=== PATIENT | female | born 1940 | race Caucasian/White ===

== ENCOUNTER 2017-05-08 20:12 | Inpatient (IN) | payer OTHER, MEDICARE ==
[2017-05-08] MEDS ORDERED: ONDANSETRON 4 MG/2 ML VIAL ONE (20:46)
[2017-05-08] MEDS ORDERED: ONDANSETRON 4 MG/2 ML VIAL IVP ONE ×2 (20:47→22:15)
[2017-05-08 20:48] LABS: PLATELET COUNT 256 10^3/uL (150-400)
[2017-05-08 21:05] LABS: CREATINE KINASE 57 IU/L (0-156)
--- NOTE | 2017-05-08 21:16 | EDPHY ---
H & P Smoking Status: Former smoker Time Seen by Provider: 05/08/17 20:33 HPI/ROS: CHIEF COMPLAINT: Right leg pain after fall HISTORY OF PRESENT ILLNESS: The patient is a 76 y/o female arriving with pain in the right knee, right hip, right lower back, and right ribs after a fall. She was sorting papers at 1:15 PM when she slipped on a paper on the ground. She fell on her right side and was unable to get up. She waited for almost 5 hours for a family member to come home. She reports pain in her right knee and right lower back are the most severe with pain in her right hip and right ribs as well. She reports she fractured her right femur just above the knee in 2012. She had an unknown injury to her right lower back in 1970. REVIEW OF SYSTEMS: A 10 point review of systems was performed and is negative with the exception of the elements mentioned in the history of present illness. (Betty Sloares) Past Medical/Surgical History: 1. Fracture to the right distal femur in 2012 2. Right lower back injury in 1970 (Betty Solares) Social History: Lives in [place], retired, former smoker (Betty Solares) Physical Exam: General Appearance: Alert, pleasant Eyes: Pupils equal and round, no conjunctival pallor or injection ENT, Mouth: Mucous membranes moist Neck: Normal inspection Respiratory: Lungs are clear to auscultation Cardiovascular: Regular rate and rhythm Gastrointestinal: Abdomen is soft and non-tender Neurological: A&O, nonfocal exam Skin: Warm and dry, no rash Extremities: Tenderness and swelling to right distal femur Psychiatric: Mood and affect normal (Betty Solares) Constitutional: Initial Vital Signs Heart Rate 94 05/08/17 21:30 Respiratory Rate 16 05/08/17 21:30 Blood Pressure 119/92 H 05/08/17 21:30 O2 Sat (%) 98 05/08/17 21:30 O2 Delivery Mode Nasal Cannula O2 (L/minute) 2 Allergies/Adverse Reactions: enalapril maleate [From Vasotec] Allergy (Intermediate, Verified 03/29/12 11:19) enalaprilat dihydrate [From Vasotec] Allergy (Verified 03/29/12 11:19) Sulfa (Sulfonamide Antibiotics) Allergy (Verified 03/29/12 11:19) Home Medications: Medication Instructions Recorded Aspirin [Aspirin 81mg (*)] 81 mg PO Q3D@21 03/29/12 Furosemide [Lasix 20 MG (*)] 20 mg PO Q3D 03/29/12 Levothyroxine [Synthroid 75 mcg 75 mcg PO MOTUWETHFRSA@06 03/29/12 (*)] Simvastatin [Zocor 40 mg] 40 mg PO HS 03/29/12 Spironolactone [Aldactone 25 MG 25 mg PO Q3D 03/29/12 (*)] Vitamin B Complex [Vitamin B 1 each PO Q3D 03/29/12 Complex (OTC)] metFORMIN HCL [Glucophage 500 mg 500 mg PO BIDMEAL 03/29/12 (*)] Calcium Carbonate [Tums 500MG (*)] 500 - 1,000 mg PO Q4 PRN 01/14/16 Insulin Glargine [Lantus 100 0 units SC DAILY 01/14/16 UNITS/ML (*)] [place]-3 Fatty Acids [Fish Oil 1000 1,000 mg PO Q3D 01/14/16 mg (*)] Acetaminophen [Tylenol 325mg (*)] 325 mg PO DAILY PRN 05/09/17 Ferrous Sulfate [Ferrous Sulf 325 325 mg PO Q3D 05/09/17 MG (*)] Medical Decision Making Procedures: An OrthoGlass posterior long leg splint was placed by the rad technologist. Neurovascularly intact after application. (Betty Solares) ED Course/Re-evaluation: 12:15 a.m.- I was asked to follow up on the patient's additional imaging studies. CT scan of lumbar spine does confirm T12 compression fracture, which appears to be likely acute. The patient does not have any tenderness of her thoracic spine. Because we have identified a femur fracture as well as a lumbar spinal fracture , I have consulted with the trauma surgeon labor relations manager Dr. Arauz who will see the patient in consultation. I do not think emergent neurosurgical consultation is required at this time given that she is without tenderness or neurologic deficit. (Aicha Patterson) The patient presents after a fall at her home. She landed on her right side and reports pain in her right knee and right lower back. She has associated pain in her right ribs and right hip, though reports it is not as severe as the knee and lower back. She denies any other symptoms. On exam, she has tenderness and swelling to her right distal femur. X-rays indicate a fracture to the right distal femur. Plan for admission for this patient. 9:55 PM- I consulted Dr. Schaffer, orthopedic surgery. He agrees to consult on this patient. 10:15 PM- I spoke with the hospitalist regarding admission for this patient. Dr. Zuñiga will be the admitting physician. 10:35 PM- Dr. Schaffer arrived and is examining the patient. A splint will be placed after his evaluation. Once splint is place, the patient will be turned to evaluate her back. There is an injury of unknown acuity T12 as shown on X-ray. Logrolled: normal back inspection, no tenderness of the thoracic or lumbar spine. However, given significant distracting injury (femur fracture), will obtain CT thoracic lumbar spine to further evaluate. X-rays discussed with the radiologist. Possible nondisplaced intertrochanteric right hip fracture. CT scan of the right hip ordered and reveals no evidence of fracture. (Betty Solares) Differential Diagnosis: Differential diagnosis includes though it is not limited to fracture, intracranial hemorrhage, pneumothorax, hemothorax, intra-abdominal hemorrhage. ( Betty Solares) - Data Points Laboratory Results: Laboratory Results 05/08/17 20:12 05/08/17 20:12 Medications Given: Hydromorphone HCl (Dilaudid) 2 mg PO Q4HRS PRN PRN Reason: Pain, Severe Able to Take PO Stop: 05/18/17 22:22 Last Admin: 05/09/17 09:54 Dose: 2 mg Lactated Ringer's (Lr) 1,000 mls @ 75 mls/hr IV CONT GENE Stop: 11/05/17 06:29 Last Admin: 05/09/17 06:21 Dose: 1,000 mls Insulin Human Lispro (Humalog Lispro) 0 unit SC TIDMEAL GENE PRN Reason: Protocol Stop: 11/05/17 07:59 Last Admin: 05/09/17 19:18 Dose: Not Given Ondansetron HCl (Zofran Odt) 4 mg PO Q4HRS PRN PRN Reason: Nausea/Vomiting, Use 1st Stop: 11/04/17 22:22 Last Admin: 05/08/17 23:29 Dose: 4 mg Discontinued Medications Bupivacaine HCl (Sensorcaine 0.5% Vial) Confirm Administered Dose 30 ml .ROUTE .STK-MED ONE Stop: 05/09/17 13:02 Last Admin: 05/09/17 17:13 Dose: 30 ml Cyclobenzaprine HCl (Flexeril) 10 mg PO TID GENE Stop: 11/05/17 08:59 Last Admin: 05/09/17 17:34 Dose: Not Given Cefazolin Sodium (Cefazolin Syringe) 2 gm in 20 mls @ 200 mls/hr IVP ONCALL ONE PRN Reason: Protocol Stop: 05/09/17 07:30 Last Admin: 05/09/17 16:00 Dose: 20 mls Morphine Sulfate (Morphine) 4 mg IVP EDNOW ONE Stop: 05/08/17 20:49 Last Admin: 05/08/17 20:50 Dose: 4 mg Morphine Sulfate (Morphine) 4 mg IVP EDNOW ONE Stop: 05/08/17 21:56 Last Admin: 05/08/17 22:02 Dose: 4 mg Ondansetron HCl (Zofran) 4 mg IVP EDNOW ONE Stop: 05/08/17 20:48 Last Admin: 05/08/17 20:50 Dose: 4 mg Ondansetron HCl (Zofran) 4 mg IVP EDNOW ONE Stop: 05/08/17 22:16 Last Admin: 05/08/17 22:22 Dose: 4 mg Departure - Departure Disposition: [facility] Inpatient Acute Clinical Impression: T12 compression fracture Fracture of distal femur Qualifiers: Encounter type: initial encounter Fracture type: closed Fracture morphology: other fracture Laterality: right Qualified Code(s): S72.491A - Other fracture of lower end of right femur, initial encounter for closed fracture Condition: Fair Report Scribed for: Betty Solares Report Scribed by: Sangita Sky Date of Report: 05/08/17 Time of Report: 21:16 Physician Review and Approval Statement: 05/08/17 21:16 Portions of this note were transcribed by a medical science liaison. I personally performed a history, physical exam, medical decision making, and confirmed accuracy of information the transcribed note. (Betty Solares)
[2017-05-08] MEDS ORDERED: NS 50 ML BAG IV ONE (22:01)
[2017-05-08] MEDS ORDERED: ONDANSETRON 4 MG/2 ML VIAL IVP PRN (22:23)
[2017-05-08] MEDS: ONDANSETRON DISINTEGRATING 4 MG TAB PO PRN (23:29)
[2017-05-08] MEDS: HYDROmorphONE/DILAUDID 2 MG TAB PO PRN (23:29)
[2017-05-09] MEDS ORDERED: D50W 25 GM/50 ML VIAL IVP PRN (01:00)
--- NOTE | 2017-05-09 01:05 | GCON ---
[f rep st] CONSULTATION DATE OF CONSULTATION: 05/08/2017 REFERRING PHYSICIAN: Betty Solares MD REASON FOR CONSULTATION: Right leg pain after fall. HISTORY OF PRESENT ILLNESS: This patient is a -[id number] female with several medical comorb idities, who presented to the ER with pain in the right knee, hip, lower back, and ribs after a fall. She was sorting papers at her house this afternoon, when she slipped on a paper on the ground, fell onto her right side, unable to get up. She waited at home for about 5 hours before somebody came ho me to help. She presented to the ER and X-rays were taken of the ankle, knee, hip, and lower back. She reports a fracture to her right femur above her knee in 2012 that was treated without surgery, an d she also reports a remote lower back injury. She is unsure of the details of that injury. REVIEW OF SYSTEMS: A 10-point review of systems is negative except for as reported above. PAST MEDICAL HISTORY: She has coronary artery disease status post 2 stents. She has COPD and is on oxygen at night. She has diabetes mellitus type 2 and is on insulin. SOCIAL HISTORY: She is retired, lives with a housemate. She is a former smoker. PAST SURGICAL HISTORY: She had a prior hysterectomy. PHYSICAL EXAMINATION: GENERAL: Alert and oriented x3, lying in bed, in mild pain. CARDIOVASCULAR: She has a thready 1+ DP pulse. PULMONARY: Chest rise equal and nonlabored bilaterally on oxygen by nasal cannula. MUSCULOSKELETAL: Right lower extremity resting on pillows. She has intact EHL, FHL , tibialis anterior, and gastroc soleus. She is intact to light touch in all dermatomes of the foot. Does report that the lateral 2 toes "feel funny." She has mentioned above, has a thready 1+ DP pul se. Her foot is well perfused. There is visible deformity over the knee. The skin is intact. PARESH L SIGNS: Within normal limits. LABS: Her hemoglobin is 12.6. Her blood sugar is elevated at 280. IMAGING: I reviewed images of the knee. They show a supracondylar femur fracture. It appears to be extra-articular with a transverse component. I reviewed the other x-rays. There is an x-ray that w as taken of the ankle, which appears to be negative. There is an x-ray of the hip, which appears to also be negative for fracture. There is an x-ray of the lumbar spine, which shows a compression frac ture at T12. ASSESSMENT AND PLAN: The patient will be admitted to the hospital service due to the multiple medica l comorbidities. We will plan on surgery tomorrow if she is okay to undergo surgery, per the risk st ratification of the hospitalist team. As far as the thoracic spine injury, she will be evaluated by the ER team. If this is deemed to be an acute injury, consultation with the spine surgeon on-call wa s recommended prior to undergoing a surgery. I will speak to the hospitalist team tomorrow to ingrid estradae her care. /[id number]/MODL
--- NOTE | 2017-05-09 01:10 | PDGENHP ---
History and Physical - Chief Complaint Fall - History of Present Illness 76 yo F w/ hx of DM and CAD presents after a fall. Patient states she slipped in her house and fell, injuring her R leg. After she fell she was unable to get up. She fell around 1 PM and was not found until 6:30 PM by her housemate. Upon arrival in the ED she was noted to have a R femoral fracture. She is being admitted for pain control and surgical consultation. History Information - Allergies/Home Medication List Allergies/Adverse Reactions: enalapril maleate [From Vasotec] Allergy (Intermediate, Verified 03/29/12 11:19) enalaprilat dihydrate [From Vasotec] Allergy (Verified 03/29/12 11:19) Sulfa (Sulfonamide Antibiotics) Allergy (Verified 03/29/12 11:19) Home Medications: Ascorbic Acid [Vitamin C 500 mg (*)] 500 mg PO BID 03/29/12 [Last Taken 08:00] Aspirin [Aspirin 81mg (*)] 81 mg PO HS 03/29/12 [Last Taken 03/28/12 21:00] Furosemide [Lasix 20 MG (*)] 20 mg PO Q3D 03/29/12 [Last Taken 03/27/12] Levothyroxine [Synthroid 75 mcg (*)] 75 mcg PO SUMOTUWETHFR@0600 03/29/12 [Last Taken 03/29/12] Simvastatin [Zocor 40 mg] 40 mg PO HS 03/29/12 [Last Taken 01/13/16] Spironolactone [Aldactone 25 MG (*)] 25 mg PO Q3D 03/29/12 [Last Taken 03/28/12] Vitamin B Complex [Vitamin B Complex (OTC)] 1 each PO DAILY 03/29/12 [Last Taken 03/29/12 08:00] metFORMIN HCL [Glucophage 500 mg (*)] 500 mg PO BIDMEAL 03/29/12 [Last Taken 08:00] Calcium Carbonate [Tums 500MG (*)] 500 - 1,000 mg PO Q4 PRN 01/14/16 [Last Taken Unknown] [place]/Supplements -Info Only 1 ea PO DAILY 01/14/16 [Last Taken Unknown] Insulin Glargine [Lantus 100 UNITS/ML (*)] 0 units SC DAILY 01/14/16 [Last Taken Unknown] [place]-3 Fatty Acids [Fish Oil 1000 mg (*)] 1,000 mg PO DAILY 01/14/16 [Last Taken Unknown] oxyCODONE/APAP 5/325 [Percocet 5/325 (*)] 0.25 - 0.5 tab PO DAILY PRN 01/14/16 [ Last Taken Unknown] I have personally reviewed and updated: family history, medical history - Past Medical History coronary artery disease, diabetes type 2 - Surgical History Reports: hysterectomy - Family History Positive for: diabetes type II - Social History Smoking Status: Former smoker Review of Systems Review of Systems: ROS: 10pt was reviewed & negative except for what was stated in HPI & below Physical Exam Physical Exam: Temp Pulse Resp BP Pulse Ox 88 16 132/67 H 100 05/08/17 23:30 05/08/17 23:30 05/08/17 23:30 05/08/17 23:30 Constitutional: chronically ill appearing, uncomfortable Eyes: PERRL, EOMI Ears, Nose, Mouth, Throat: moist mucous membranes, no oral mucosal ulcers Cardiovascular: regular rate and rhythym, systolic murmur Respiratory: no respiratory distress, clear to auscultation Gastrointestinal: normoactive bowel sounds, soft, non-tender abdomen Skin: warm, normal color Musculoskeletal: other (R leg wrapped w/ splint in place) Neurologic: AAOx3, CN II-XII Intact Psychiatric: interacting appropriately, not anxious Lab Data & Imaging Review 05/08/17 20:12 05/08/17 20:12 WBC 15.90 10^3/uL (3.80-9.50) H 05/08/17 20:12 RBC 4.16 10^6/uL (4.18-5.33) L 05/08/17 20:12 Hgb 12.5 g/dL (12.6-16.3) L 05/08/17 20:12 Hct 37.2 % (38.0-47.0) L 05/08/17 20:12 MCV 89.4 fL (81.5-99.8) 05/08/17 20:12 MCH 30.0 pg (27.9-34.1) 05/08/17 20:12 MCHC 33.6 g/dL (32.4-36.7) 05/08/17 20:12 RDW 12.8 % (11.5-15.2) 05/08/17 20:12 Plt Count 256 10^3/uL (150-400) 05/08/17 20:12 MPV 11.8 fL (8.7-11.7) H 05/08/17 20:12 Neut % (Auto) 86.5 % (39.3-74.2) H 05/08/17 20:12 Lymph % (Auto) 6.9 % (15.0-45.0) L 05/08/17 20:12 [place] % (Auto) 5.5 % (4.5-13.0) 05/08/17 20:12 Eos % (Auto) 0.1 % (0.6-7.6) L 05/08/17 20:12 Baso % (Auto) 0.4 % (0.3-1.7) 05/08/17 20:12 Nucleat RBC Rel Count 0.0 % (0.0-0.2) 05/08/17 20:12 Absolute Neuts (auto) 13.76 10^3/uL (1.70-6.50) H 05/08/17 20:12 Absolute Lymphs (auto) 1.09 10^3/uL (1.00-3.00) 05/08/17 20:12 Absolute Monos (auto) 0.87 10^3/uL (0.30-0.80) H 05/08/17 20:12 Absolute Eos (auto) 0.01 10^3/uL (0.03-0.40) L 05/08/17 20:12 Absolute Basos (auto) 0.07 10^3/uL (0.02-0.10) 05/08/17 20:12 Absolute Nucleated RBC 0.00 10^3/uL (0-0.01) 05/08/17 20:12 Immature Gran % 0.6 % (0.0-1.1) 05/08/17 20:12 Immature Gran # 0.10 10^3/uL (0.00-0.10) 05/08/17 20:12 Sodium 140 mEq/L (135-145) 05/08/17 20:12 Potassium 4.8 mEq/L (3.5-5.2) 05/08/17 20:12 Chloride 104 mEq/L (97-110) 05/08/17 20:12 Carbon Dioxide 19 mEq/l (22-31) L 05/08/17 20:12 Anion Gap 17 mEq/L (8-16) H 05/08/17 20:12 BUN 25 mg/dL (7-23) H 05/08/17 20:12 Creatinine 1.1 mg/dL (0.6-1.0) H 05/08/17 20:12 Estimated GFR 48 05/08/17 20:12 Glucose 289 mg/dL (70-100) H 05/08/17 20:12 Calcium 9.2 mg/dL (8.5-10.4) 05/08/17 20:12 Creatine Kinase 57 IU/L (0-156) 05/08/17 20:12 Imaging Review: Imaging Impressions Ankle X-Ray 05/08/17 20:40 Impression: 1. No definite fracture. 2. Tibiotalar and fibulotalar osteoarthrosis. 3. Diffuse demineralization. Hip X-Ray 05/08/17 20:40 Impression: Subtle intertrochanteric lucency through the right femur could represent subtle nondisplaced fracture. Dr. Lanza discussed these findings by telephone with JOSE YU at 2310 hours on 05/08/2017. Knee X-Ray 05/08/17 20:40 Impression: 1. Comminuted and displaced fracture of the distal femoral metaphysis, as above. 2. Suspected nondisplaced fracture of the proximal fibula. 3. Cortical thinning/irregularity in the fibula, progressed since 2014. While this may reflect underlying osteopenia/osteoporosis, multiple myeloma could have a similar appearance. Lumbar Spine X-Ray 05/08/17 20:40 Impression: 1. Mild anterior wedge deformity of T12 consistent with an age-indeterminate compression fracture. 2. Multilevel degenerative changes with grade 1 anterolisthesis at L4-L5. Lumbar Spine CT 05/08/17 22:53 Impression: 1. Mild anterior wedge deformity/compression fracture at T12, likely acute. 2. Multilevel degenerative changes with at least moderate canal stenosis at L4- L5, as above. Dr. Lanza discussed these findings by telephone with Aicha Patterson at 2354 hours on 05/08/2017. Extremity CT 05/08/17 23:09 Impression: 1. Severely comminuted intra-articular fracture of the distal femoral meta- epiphysis, as above. 2. Intact right hip. Dr. Lanza discussed these findings by telephone with Aicha Patterson at 2354 hours on 05/08/2017. Assessment & Plan Assessment: 76 yo F w/ DM and CAD presents after a fall and found to have femoral fracture and spinal compression fracture. Plan: 1. Femoral fracture - Severely comminuted intra-articular fracture of the distal femoral meta-epiphysis. - Dilaudid IV, PO for pain control - Orthopedic surgery consulted, appreciate assistance - Maintain NPO - Will check Vit D, would recommend DEXA evaluation for osteoporosis as outpatient 2. Mild anterior wedge deformity/compression fracture at T12, likely acute. - Trauma evaluation requested, appreciate assistance - PT/OT evaluations 3. IDDM - Patient takes metformin and insulin glargine 32 u qAM as outpatient. - SSI standard protocol - Await med reconciliation prior to ordering basal insulin 4. CAD - Patient reports hx of 2 cardiac stents in 2005. She takes ASA and statin as outpatient. Diet - NPO pending surgical evaluation Code - Full Ppx - SCDs Dispo - Admit under inpatient status noting need for surgical intervention and likely lengthy therapy prior to regaining mobility.
[2017-05-09 04:26] LABS: PLATELET COUNT 228 10^3/uL (150-400)
--- NOTE | 2017-05-09 05:15 | PDCONSULT ---
Document Preparer Microfilming Note: CC: R leg pain HPI: 76 y/o female found down at 6:30PM last night after slipping and falling at home landing on her right side and injuring her right leg. She was transported to the ED and was evaluated by Dr. Solares who consulted Dr. Schaffer for a distal right femur fracture. Additional imaging revealed a T12 compresion fracture. She was admitted to the Medical Service and Trauma Surgical Consult was requested. She denies LOC or head injury. She reports previously fracturing her distal right femur in 2012 and was managed non-operatively. PMH: IDDM, HTN, chronic bronchitis (home O2 2lpm), CAD/stent x 2 tobacco-quit smoking 1985 surgery-hysterectomy SH: lives in [place] with a roomate FH: non-contributing ROS: right hip pain, knee pain, dry mouth denies SOB, chest pain denies LOC, ARAUZ, visual disturbances reports prior back injury 1970-no x-rays PE: elderly obese female alert and awake/good historian BP 128/78 P 74 T 36.4 R18 O2 sat 94% 2lpm HEENT: NCAT, P2RRL,EOM intact, neck non-tender Lungs: clear with diminished CVS: RRR w/out murmurs Abd: soft/non-tender Pelvis: tender right posterior pelvis/SI joint Back: no tenderness Thoraco-Lumbar spine Ext: RLE TALIA wrap in partial flexion, distal NV intact neuro: intact, oriented x 3, GCS 15 Imp: 1. s/p fall 2. right distal femur fx. 3. T12 fracture-age indeterminate, but without focal tenderness currently 4. HTN 5. IDDM 6. chronic bronchitis/O2 7. obesity Rec: PT/OT/ST definitive management of right distal femur fracture per Dr. Schaffer I would not recommend further work up of the T12 fx unless she becomes symptomatic VTE prophylaxis CXR Continue NPO for now unless surgery for ORIF is delayed IV fluids until taking po. S MD Regla, FACS
[2017-05-09] MEDS: HYDROmorphONE/DILAUDID 2 MG TAB PO PRN ×2 (05:45→09:54)
[2017-05-09] MEDS: LR 1,000 ML IV SCH (06:21)
[2017-05-09] MEDS ORDERED: ceFAZolin 2 GM/SWFI 2 GM/20 ML SYR IVP ONE (07:25)
--- NOTE | 2017-05-09 08:44 | HOSPPROG ---
Hospitalist Progress Note Assessment/Plan: 76 yo F w/ DM and CAD presents after a fall and found to have femoral fracture and spinal compression fracture. Today is my 1st encounter with the patient. Chart reviewed. * femoral fracture - Severely comminuted intra-articular fracture of the distal femoral meta-epiphysis. - Dilaudid IV, PO for pain control - OR today with Dr Schaffer *low Vitamin D level -will add calcium and D to her medication profile *T12 compression fx, mild anterior wedge -not c/o back pain -will follow *leukocytosis -stress induced *anemia -follow/ repeat labs in the morning *renal insufficiency -creat is 1.1, repeat labs in a.m. * IDDM - Patient takes metformin and insulin glargine 32 u qAM as outpatient. - SSI standard protocol - hold metformin and continue sliding scale only, can add long acting insulin when she is eating and drinking * CAD - Patient reports hx of 2 cardiac stents in 2005 -had a heart catheterization in 2014 that was unremarkable w minimal CAD *dvt prophylaxis: will need this initiated after surgery *plan: OR today, her cardiac risk index is moderate. 6.6% of PR. She has diabetes, CAD. Will get repeat labs in the morning Subjective: Alex has no c/o chest pain, her leg hurts. Objective: Vital Signs Temp Pulse Resp BP Pulse Ox 36.8 C 94 16 109/51 L 99 05/09/17 07:44 05/09/17 07:44 05/09/17 07:44 05/09/17 07:44 05/09/17 07:44 Laboratory Results 05/09/17 04:15 05/09/17 04:15 05/08/17 05/09/17 05/10/17 05:59 05:59 05:59 Output Total 200 Balance -200 - Physical Exam Constitutional: uncomfortable, No not in pain Eyes: PERRL Ears, Nose, Mouth, Throat: hearing normal Cardiovascular: regular rate and rhythym, no murmur, rub, or gallop Respiratory: no respiratory distress Skin: warm Musculoskeletal: muscular tenderness Neurologic: AAOx3 Psychiatric: interacting appropriately ICD10 Worksheet Patient Problems: Problems Problem Status Onset Fracture of distal femur Acute T12 compression fracture Acute Fracture of proximal end of femur Active UTI (urinary tract infection) Acute Vertigo Acute Vomiting Acute
[2017-05-09] MEDS: CYCLOBENZAPRINE 10 MG TAB PO SCH ×2 (09:53→17:34)
--- NOTE | 2017-05-09 10:42 | CPEKG ---
Heart Rate: 86 RR Interval: 698 P-R Interval: 180 QRSD Interval: 66 QT Interval: 363 QTC Interval: 434 P [place]: 62 QRS [place]: 35 T Wave [place]: 15 EKG Severity - BORDERLINE ECG - EKG Impression: SINUS RHYTHM EKG Impression: BORDERLINE T ABNORMALITIES, ANTERIOR LEADS Electronically Signed By: Manuel Quinonez 09-May-2017 12:57:05
[2017-05-09] MEDS: INSULIN LISPRO 100 UNIT/ML SC SCH ×3 (10:45→19:18)
--- NOTE | 2017-05-09 11:18 | ASMTCMCOM ---
CM Note CM Note Notes: Pt to OR today for femur fx she sustained after a fall at home. Pt lives w a housemate. Potentially complicating comorbidities: CAD and type 2 diabetes. Therapy evals pending. CM to follow pt progress and PT/OT recs for d/c plan of care. Date Signed: 05/09/2017 11:17 AM Electronically Signed By:TRACY Mendez
--- NOTE | 2017-05-09 11:58 | PDMN ---
Medical Necessity Medical necessity: Change to IP, as of 05/09/17, per MD; los >2 mn for ongoing management of R femur fx & T12 compression fx r/t fall; admit for Ortho/Trauma consults, surgical intervention, IVFs, IV abx, pain management & therapies; hx CAD, diabetes; per H&P & order 05/09/17
[2017-05-09] MEDS ORDERED: BUPIVACAINE 0.5% 30 ML SDV ONE (13:01)
--- NOTE | 2017-05-09 13:45 | PDHPUP ---
History & Physical Update H&P update statement: This history and physical update is based on an assessment of the patient which was completed after admission or registration (within 24 hours), but prior to the surgery/procedure. H&P update: H&P reviewed & patient examined, no change in patient's condition since H&P completed
--- NOTE | 2017-05-09 13:48 | PDANEPAE ---
ANE Past Medical History - Cardiovascular History Hx Coronary Artery / Peripheral Vascular Disease: Yes - Pulmonary History Hx Oxygen in Use at Home: Yes O2 in Use at Home (L/minute): 2 Hx Sleep Apnea: Yes Sleep Apnea Screening Result - Last Documented: Positive - Endocrine History Hx Diabetes: Yes Hypothyroid: Yes - Chronic Pain History Chronic Pain: Yes (r hip, r lower bacl, r knee, r ankle) ANE Review of Systems Review of Systems: ANE Patient History - Allergies Allergies/Adverse Reactions: enalapril maleate [From Vasotec] Allergy (Intermediate, Verified 03/29/12 11:19) enalaprilat dihydrate [From Vasotec] Allergy (Verified 03/29/12 11:19) Sulfa (Sulfonamide Antibiotics) Allergy (Verified 03/29/12 11:19) - Home Medications Home Medications: Aspirin [Aspirin 81mg (*)] 81 mg PO Q3D@21 03/29/12 [Last Taken 05/07/17] Furosemide [Lasix 20 MG (*)] 20 mg PO Q3D 03/29/12 [Last Taken 03/27/12] Levothyroxine [Synthroid 75 mcg (*)] 75 mcg PO MOTUWETHFRSA@06 03/29/12 [Last Taken 05/08/17] Simvastatin [Zocor 40 mg] 40 mg PO HS 03/29/12 [Last Taken 05/07/17] Spironolactone [Aldactone 25 MG (*)] 25 mg PO Q3D 03/29/12 [Last Taken 03/28/12] Vitamin B Complex [Vitamin B Complex (OTC)] 1 each PO Q3D 03/29/12 [Last Taken 03/29/12 08:00] metFORMIN HCL [Glucophage 500 mg (*)] 500 mg PO BIDMEAL 03/29/12 [Last Taken 09:00] Calcium Carbonate [Tums 500MG (*)] 500 - 1,000 mg PO Q4 PRN 01/14/16 [Last Taken Unknown] Insulin Glargine [Lantus 100 UNITS/ML (*)] 0 units SC DAILY 01/14/16 [Last Taken 05/08/17 32 units] [place]-3 Fatty Acids [Fish Oil 1000 mg (*)] 1,000 mg PO Q3D 01/14/16 [Last Taken Unknown] Acetaminophen [Tylenol 325mg (*)] 325 mg PO DAILY PRN 05/09/17 [Last Taken Unknown] Ferrous Sulfate [Ferrous Sulf 325 MG (*)] 325 mg PO Q3D 05/09/17 [Last Taken Unknown] - NPO status NPO Since - Liquids (Date): 05/09/17 NPO Since - Liquids (Time): 00:00 NPO Since - Solids (Date): 05/09/17 NPO Since - Solids (Time): 00:00 - Smoking Hx Smoking Status: Former smoker ANE Labs/Vital Signs - Labs Result Diagrams: 05/09/17 04:15 05/09/17 04:15 - Vital Signs Blood Pressure: 93/70 Heart Rate: 93 Respiratory Rate: 15 O2 Sat (%): 95 Height: 152.4 cm Weight: 68.039 kg ANE Physical Exam - Airway Mallampati Score: Class 2 - ASA Status ASA Status: III ANE Anesthesia Plan Anesthesia Plan: general endotracheal anesthesia
[2017-05-09] MEDS ORDERED: fentaNYL 100 MCG/2 ML INJ ONE ×2 (13:56→15:52)
[2017-05-09] MEDS ORDERED: PROPOFOL 200 MG/20 ML VIAL ONE (13:56)
[2017-05-09] MEDS ORDERED: PHENYLEPHRINE HCL 100 MCG/ML SYR ONE (13:57)
[2017-05-09] MEDS ORDERED: ONDANSETRON 4 MG/2 ML VIAL ONE (13:57)
[2017-05-09] MEDS ORDERED: METOCLOPRAMIDE 10 MG/2 ML VIAL ONE (13:57)
[2017-05-09] MEDS ORDERED: LIDOCAINE 2% JELLY 5 ML TUBE ONE (13:57)
[2017-05-09] MEDS ORDERED: ceFAZolin 2 GM/SWFI 20 ML SYR IVP ONE (13:59)
[2017-05-09] MEDS ORDERED: BISACODYL 10 MG SUPP PR PRN (14:41)
[2017-05-09] MEDS ORDERED: LACTULOSE 20 GM/30 ML UDCUP PO PRN (14:41)
[2017-05-09] MEDS ORDERED: fentaNYL 100 MCG/2 ML INJ IVP PRN (17:14)
[2017-05-09] MEDS ORDERED: LR 500 ML IV PRN (17:14)
[2017-05-09] MEDS ORDERED: PROMETHAZINE HCL 25 MG/ML INJ IVP PRN (17:14)
[2017-05-09] MEDS ORDERED: NALOXONE HCL 0.4 MG/ML INJ IVP PRN (17:14)
--- NOTE | 2017-05-09 17:15 | POSTANESTH ---
Post Anesthetic Evaluation Cardiovascular Status: Similar to Pre-Op Cond Respiratory Status: Similar to Pre-op Cond. Level of Consciousness/Mental Status: Can Participate in Eval Pain Control: Adequate, Prn Tx Ordered Nausea/Vomiting Control: Adequate, Prn Tx Ordered Complications Possibly Related to Anesthesia: None Noted
--- NOTE | 2017-05-09 20:23 | GOP ---
[f rep st] OPERATIVE REPORT DATE OF OPERATION: SURGEON: Lenny Schaffer MD ANESTHESIA: General. PREOPERATIVE DIAGNOSIS: Intra-articular right distal femur fracture. POSTOPERATIVE DIAGNOSIS: Intra-articular right distal femur fracture. PROCEDURE PERFORMED: Open reduction and internal fixation of right intra-articular distal femur frac domonique. FINDINGS: ESTIMATED BLOOD LOSS: 40 cc. INDICATIONS: This is a 76-year-old female who sustained this injury yesterday when she slipped and f ell at home. She was seen and evaluated in the ER by the ER staff. I was consulted. I saw the km ent in the ER yesterday. She was admitted to the hospitalist service. Open reduction and internal f ixation are indicated for this pattern of injury. I reviewed the x-ray and the CT, which showed a di stal femur fracture with an intra-articular split. Discussed the risks and benefits of surgery. Ris ks include pain, bleeding, infection, damage to surrounding structures, malunion, nonunion, delayed u nion, stiffness and weakness, limp, need for further operations, hardware irritation. She understood the risks and wished to proceed. DESCRIPTION OF PROCEDURE: The patient was seen in the preoperative holding area. She was given the opportunity to ask any more questions. All her questions were answered. Consent was signed. Surgic al site was marked. She was transferred to the operative suite. Care was taken to transfer the km ent from the [facility] to the operating room table. Care was taken to pad all bony prominences prior to the induction of anesthesia. General anesthesia was induced by the anesthesia team. Time-out was c alled including surgical and anesthesia teams confirming the surgical site and procedure to be perfor med. The right extremity was prepped and draped in the usual sterile fashion on a radiolu cent table, and Esmarch was used to examine the right lower extremity, and the tourniquet was inflate d to 300 mmHg. I made a standard lateral incision for a direct lateral approach to the distal femur. We dissected down through the skin to the level of the IT band. The IT band was split up to Gerdy tubercle. Then a lateral arthrotomy was performed. The joint was visualized. The fracture was visu alized after elevating the vastus lateralis from the intermuscular septum. After visualizing the fra cture, it was irrigated. First, 2 wires were used to hold the intra-articular split reduced and a pl ate was then chosen. Then, a reduction was performed with traction and flexion of the femur. The re duction was then held with several K-wires. The plate was then placed against the bone and distally was held against the bone with a periarticular clamp. A small stab incision was made medially for th e clamp. With the plate clamped to the skin, several K-wires were then used to hold it onto the bone and the position was checked with fluoroscopy. When we were happy with its position, the distal loc kimmie screws were placed in the standard fashion unicortically. I checked these under fluoroscopy and we were happy with these. Then, a cortical screw was placed laterally to pull the plate against the bone. This pulled the plate in nicely. The reduction remained anatomic. Two more locking screws w ere placed and then placed through the plate. Final x-rays were taken. The wound was copiously irri gated with sterile saline. The IT band and the arthrotomy were closed with a #1 Vicryl. Then, the w ound was closed in layers with 0 Vicryl, 2-0 Monocryl and then carter. Sterile dressing was applied . Of note, prior to fully closing, the tourniquet was let down. There was no bleeding and the foot was well perfused. After placing a hinged knee brace, the patient was taken to the PACU in stable co ndition. IMPLANTS USED: Synthes periarticular distal femur plate, 6-hole. POSTOPERATIVE CONDITION: Stable. POSTOPERATIVE PLAN: The patient will be readmitted to the hospitalist service. I will follow the juana alcaraz in the hospital. She will begin PT. She will be nonweightbearing for 8 to 12 weeks. We will allow her movement in the knee brace. She will follow up with me in clinic and we will assess her pr ogress with x-rays. /[id number]/MODL
[2017-05-09] MEDS: SENNOSIDES/DOCUSATE SODIUM TAB PO SCH (21:56)
[2017-05-09] MEDS: ATORVASTATIN CALCIUM 20 MG TAB PO SCH (21:57)
[2017-05-09] MEDS: oxyCODONE IR 5 MG TAB PO PRN (21:57)
[2017-05-09] MEDS ORDERED: ceFAZolin 2 GM in NS 50 ML IV SCH (22:00)
[2017-05-09] MEDS: ceFAZolin 2 GM/SWFI 2 GM/20 ML SYR IVP SCH (22:00)
[2017-05-09] MEDS: ACETAMINOPHEN 325 MG TAB PO PRN (23:58)
[2017-05-10] MEDS: LR 1,000 ML IV SCH ×2 (02:04→18:56)
[2017-05-10] MEDS: oxyCODONE IR 5 MG TAB PO PRN ×5 (04:20→22:05)
[2017-05-10 05:03] LABS: PLATELET COUNT 174 10^3/uL (150-400)
[2017-05-10] MEDS: ACETAMINOPHEN 325 MG TAB PO PRN ×2 (05:20→16:55)
[2017-05-10] MEDS: ceFAZolin 2 GM/SWFI 2 GM/20 ML SYR IVP SCH ×2 (05:20→14:00)
[2017-05-10] MEDS: LEVOTHYROXINE 75 MCG TAB PO SCH (05:20)
[2017-05-10] MEDS: CHOLECALCIFEROL VIT D3 1,000 UNITS TAB PO SCH (08:14)
[2017-05-10] MEDS: SENNOSIDES/DOCUSATE SODIUM TAB PO SCH ×2 (08:14→22:03)
[2017-05-10] MEDS: ENOXAPARIN 40 MG/0.4 ML SYR SC SCH (08:15)
[2017-05-10] MEDS: POLYETHYLENE GLYCOL 3350 17 GM PKT PO SCH (08:15)
--- NOTE | 2017-05-10 08:41 | TRAUMAPN ---
Trauma Progress Note Assessment/Plan: PAD#1 POD#1 05/10/2017 Assessment: Complains of some pain from back. Apparently she had a compression fracture in 1971 at T12 and does have some changes that may or may not be new. Will order an IS Plan: If pain continues to be an issue will order a TLSO brace Subjective: my back pain is much less than my leg pain. No gas or stool yet Objective: Vital Signs Temp Pulse Resp BP Pulse Ox 36.7 C 92 18 137/70 H 98 05/10/17 07:43 05/10/17 07:43 05/10/17 07:43 05/10/17 07:43 05/10/17 07:43 Laboratory Results 05/10/17 04:15 05/10/17 04:15 05/09/17 05/10/17 05/11/17 05:59 05:59 05:59 Intake Total 1200 Output Total 200 330 Balance -200 870 Physical Exam - Physical Exam General Appearance: WD/WN, alert, mild distress Neck: non-tender, full range of motion, supple, normal inspection Respiratory: chest non-tender, lungs clear, normal breath sounds Cardiac/Chest: regular rate, rhythm Abdomen: normal bowel sounds, non-tender, soft, distended Pelvic Exam: deferred Rectal: deferred Back: Normal inspection, Other (tender minimally at T12) Skin: normal color, warm/dry Neuro/Psych: no motor/sensory deficits, alert, normal mood/affect, oriented x 3
--- NOTE | 2017-05-10 08:44 | SOAPPROG ---
SOAP Progress Note Assessment/Plan: Assessment: POD#1 s/p ORIF R distal femur -doing well Plan: -appreciate care of trauma and hospitalist teams -PT/OT -pain ctrl -d/c pond -the patient would likely benefit from acute rehab or SNF, as she lives alone and will not be able to bear weight on that leg for a prolonged period of time 05/10/17 08:44 05/10/17 08:48 Subjective: C/o pain in that leg. She appears cheerful this morning. Pain ctrl'd with current regimen. Objective: Vital Signs Temp Pulse Resp BP Pulse Ox 36.7 C 92 18 137/70 H 98 05/10/17 07:43 05/10/17 07:43 05/10/17 07:43 05/10/17 07:43 05/10/17 07:43 Laboratory Results 05/10/17 04:15 05/10/17 04:15 05/09/17 05/10/17 05/11/17 05:59 05:59 05:59 Intake Total 1200 Output Total 200 330 Balance -200 870 Gen: NAD, sitting up in bed RLE -dressing in place, no breakthrough -intact EHL/FHL, TA/GS -SILT R foot (subjectively lateral 2 toes "feel funny") -foot well perfused - Time Spent With Patient Time Spent With Patient: 10 min ICD10 Worksheet Patient Problems: Problems Problem Status Onset Fracture of distal femur Acute T12 compression fracture Acute Fracture of proximal end of femur Active UTI (urinary tract infection) Acute Vertigo Acute Vomiting Acute
[2017-05-10] MEDS: HYDROmorphONE/DILAUDID 2 MG TAB PO PRN (10:07)
[2017-05-10] MEDS: INSULIN LISPRO 100 UNIT/ML SC SCH ×4 (10:13→22:02)
--- NOTE | 2017-05-10 11:14 | HOSPPROG ---
Hospitalist Progress Note Assessment/Plan: 76 yo F w/ DM and CAD presents after a fall and found to have femoral fracture and spinal compression fracture. Today is my 1st encounter with the patient. Chart reviewed. Spoke with Krista BRAGA. * femoral fracture - Severely comminuted intra-articular fracture of the distal femoral meta-epiphysis. - s/p ORIF distal femur with Dr Schaffer POD 1 - Dilaudid IV, PO for pain control - will add PO Robaxin * Low back pain - pt reports historically she will will get intermittent discomfort - will order K pad and Lidoderm patch *low Vitamin D level -added calcium and D to her medication profile yesterday *T12 compression fx, mild anterior wedge -not c/o back pain -followed by trauma surgeon who recommends IS and possible TLS brace if ongoing pain *leukocytosis -stress induced *anemia -follow/ repeat labs today show H/H 9.4/28.8 *renal insufficiency -creat is 1.1 stable * IDDM - Patient takes metformin and insulin glargine 32 u qAM as outpatient. - SSI standard protocol - resume insulin glargine today and follow AC/HS BS * CAD - Patient reports hx of 2 cardiac stents in 2005 -had a heart catheterization in 2014 that was unremarkable w minimal CAD *dvt prophylaxis: resume Enox today Subjective: Severe R knee pain and R lower back pain. Latter complaint she reports is not related to compression fx but has occurred in the past intermittently. Objective: Vital Signs Temp Pulse Resp BP Pulse Ox 98.1 F 92 18 137/70 H 98 05/10/17 07:43 05/10/17 07:43 05/10/17 07:43 05/10/17 07:43 05/10/17 07:43 Laboratory Results 05/10/17 04:15 05/10/17 04:15 05/09/17 05/10/17 05/11/17 05:59 05:59 05:59 Intake Total 1200 Output Total 200 330 Balance -200 870 - Pending Discharge Pending Discharge Within 24 Hours: No - Physical Exam Constitutional: appears nourished, uncomfortable Eyes: PERRL Ears, Nose, Mouth, Throat: moist mucous membranes Cardiovascular: regular rate and rhythym, no murmur, rub, or gallop Respiratory: no respiratory distress (frontal beck) Gastrointestinal: normoactive bowel sounds Skin: warm, normal color Neurologic: AAOx3 Psychiatric: interacting appropriately, not anxious ICD10 Worksheet Patient Problems: Problems Problem Status Onset Fracture of proximal end of femur Active Vertigo Acute Vomiting Acute UTI (urinary tract infection) Acute Fracture of distal femur Acute T12 compression fracture Acute
[2017-05-10] MEDS: METHOCARBAMOL 750 MG TAB PO SCH ×3 (12:05→22:04)
[2017-05-10] MEDS: LIDOCAINE 4%/MENTHOL 1% PATCH TD SCH (12:06)
--- NOTE | 2017-05-10 13:36 | ASMTCMCOM ---
CM Note CM Note Notes: Spoke with pt regarding possible SNF d/c. PT/OT have not worked with her yet due to her pain issues. Pt lives in [place] and is okay with a [place] SNF. She has been to [facility] [place] in the past and does not want to go back there. She is somewhat concerned about her 2 cats but will discuss their care with her housemate. Sent referral and PAS[facility] via [facility] to the [facility]. In the event she does not need a SNF d/c, she has had [facility] in the past and would be fine having them again. Date Signed: 05/10/2017 01:36 PM Electronically Signed By:TRACY Adames
[2017-05-10] MEDS: HYDROmorphone HCL/NS 0.5 MG/ML SYR IVP PRN (15:59)
[2017-05-10] MEDS: ATORVASTATIN CALCIUM 20 MG TAB PO SCH (22:03)
[2017-05-10] MEDS: PATCH REMOVAL 1 EA PATCH TD SCH (22:10)
[2017-05-11] MEDS: HYDROmorphONE/DILAUDID 2 MG TAB PO PRN (02:56)
[2017-05-11] MEDS: HYDROmorphone HCL/NS 0.5 MG/ML SYR IVP PRN (02:56)
[2017-05-11] MEDS: LIDOCAINE 4%/MENTHOL 1% PATCH TD SCH (08:20)
[2017-05-11] MEDS: POLYETHYLENE GLYCOL 3350 17 GM PKT PO SCH ×2 (08:20→16:09)
[2017-05-11] MEDS: CHOLECALCIFEROL VIT D3 1,000 UNITS TAB PO SCH (08:21)
[2017-05-11] MEDS: SENNOSIDES/DOCUSATE SODIUM TAB PO SCH ×2 (08:21→21:38)
[2017-05-11] MEDS: oxyCODONE IR 5 MG TAB PO PRN ×2 (08:21→21:36)
[2017-05-11] MEDS: ENOXAPARIN 40 MG/0.4 ML SYR SC SCH (08:21)
[2017-05-11] MEDS: METHOCARBAMOL 750 MG TAB PO SCH ×3 (08:21→21:35)
[2017-05-11] MEDS: INSULIN GLARGINE 100 UNITS/ML UNIT SC SCH (08:22)
[2017-05-11] MEDS: INSULIN LISPRO 100 UNIT/ML SC SCH ×3 (08:28→17:51)
[2017-05-11] MEDS ORDERED: INSULIN GLARGINE 50 UNIT SC SCH (09:00)
[2017-05-11] MEDS ORDERED: INSULIN GLARGINE 100 UNITS/ML UNIT SC SCH (09:00)
--- NOTE | 2017-05-11 10:26 | TRAUMAPN ---
Trauma Progress Note Assessment/Plan: PAD#1 POD#1 05/10/2017 Assessment: Complains of some pain from back. Apparently she had a compression fracture in 1970 at T12 and does have some changes that may or may not be new. Will order an IS Plan: If pain continues to be an issue will order a TLSO brace PAD#2 POD#2 Assessment: GI - Passing flatus but not stool yet Back - Still c/o mid back pain. Presume T12 compression has an acute component on top of her chronic component. Plan: Will increase miralax to 2x/day Will not order MRI but will order TSLO brace Subjective: I'm passing gas but not stool. My back still hurts Objective: Vital Signs Temp Pulse Resp BP Pulse Ox 36.7 C 105 H 16 111/66 93 05/11/17 08:00 05/11/17 08:00 05/11/17 08:00 05/11/17 08:00 05/11/17 08:00 Laboratory Results 05/10/17 04:15 05/10/17 04:15 05/10/17 05/11/17 05/12/17 05:59 05:59 05:59 Intake Total 1200 700 Output Total 330 1500 Balance 870 -800 Physical Exam - Physical Exam General Appearance: WD/WN, alert, mild distress Respiratory: lungs clear, normal breath sounds Cardiac/Chest: regular rate, rhythm Abdomen: normal bowel sounds, non-tender, soft, distended Pelvic Exam: deferred Rectal: deferred Back: Normal inspection, Other (fish bin tender at T12) Skin: normal color, warm/dry Neuro/Psych: no motor/sensory deficits, alert, normal mood/affect, oriented x 3
[2017-05-11] MEDS: ACETAMINOPHEN 325 MG TAB PO PRN (12:42)
--- NOTE | 2017-05-11 13:43 | HOSPPROG ---
Hospitalist Progress Note Assessment/Plan: 76 yo F w/ DM and CAD presents after a fall and found to have femoral fracture and spinal compression fracture. * femoral fracture - Severely comminuted intra-articular fracture of the distal femoral meta-epiphysis. - s/p ORIF distal femur with Dr Schaffer POD 2 - Dilaudid IV, PO, Oxy, and Robaxin for pain control * Constipation on bowel protocol * Low back pain - pt reports historically she will will get intermittent discomfort - will order K pad and Lidoderm patch *low Vitamin D level -calcium and D have been added to her medication profile *T12 compression fx, mild anterior wedge -having more pain today -followed by trauma surgeon who recommends IS and TLSO brace *leukocytosis -stress induced -repeat CBC to follow *anemia -follow/likely anemia of chronic disease and ABL *renal insufficiency -creat is 1.1 stable * IDDM - Patient takes metformin and insulin glargine 32 u qAM as outpatient. - SSI standard protocol - resumed insulin glargine yesterday and follow AC/HS BS -will resume Metformin as no further surgical interventions are planned and patient taking PO * CAD - Patient reports hx of 2 cardiac stents in 2005 -had a heart catheterization in 2014 that was unremarkable w minimal CAD *dvt prophylaxis: resumed Enox and continue for [address] Schaffer Disposition - therapy recommended SNF rehab/ await placement Subjective: Reports some back pain and knee pain currently. Notes abdominal bloating. Objective: Vital Signs Temp Pulse Resp BP Pulse Ox 98.1 F 101 H 18 110/50 L 95 05/11/17 12:00 05/11/17 12:00 05/11/17 12:00 05/11/17 12:00 05/11/17 12:00 Laboratory Results 05/10/17 04:15 05/10/17 04:15 05/10/17 05/11/17 05/12/17 05:59 05:59 05:59 Intake Total 1200 700 Output Total 330 1500 200 Balance 870 -800 -200 - Physical Exam Constitutional: no apparent distress Eyes: anicteric sclera Ears, Nose, Mouth, Throat: moist mucous membranes Cardiovascular: regular rate and rhythym Respiratory: no respiratory distress Gastrointestinal: normoactive bowel sounds, distension Skin: warm, normal color Neurologic: AAOx3 Psychiatric: interacting appropriately, not anxious ICD10 Worksheet Patient Problems: Problems Problem Status Onset Fracture of distal femur Acute T12 compression fracture Acute Fracture of proximal end of femur Active UTI (urinary tract infection) Acute Vertigo Acute Vomiting Acute
--- NOTE | 2017-05-11 14:07 | ASMTCMCOM ---
CM Note CM Note Notes: Patient and son wanted to add [facility] to the referral list which already included [facility]. Date Signed: 05/11/2017 02:06 PM Electronically Signed By:Luz Martinez LCSW
[2017-05-11] MEDS ORDERED: POLYETHYLENE GLYCOL 3350 17 GM PKT ONE (16:08)
--- NOTE | 2017-05-11 16:27 | SOAPPROG ---
SOAP Progress Note Assessment/Plan: Assessment: POD#2 s/p ORIF R distal femur -doing well today, pain improving Plan: -appreciate care of trauma and hospitalist teams -PT/OT -pain ctrl -DVT prophy with Lovenox (21 d total) -TLSO for T12 fx per trauma notes -the patient would likely benefit from acute rehab or SNF, as she lives alone and will not be able to bear weight on that leg for a prolonged period of time -dressing change tmrw 05/10/17 08:44 05/10/17 08:48 05/11/17 16:25 05/11/17 16:27 Subjective: She feels better this afternoon. Has not had a chance to participate much with PT yet. Objective: Vital Signs Temp Pulse Resp BP Pulse Ox 36.9 C 97 16 115/59 L 94 05/11/17 16:00 05/11/17 16:00 05/11/17 16:00 05/11/17 16:24 05/11/17 16:00 Laboratory Results 05/10/17 04:15 05/10/17 04:15 05/10/17 05/11/17 05/12/17 05:59 05:59 05:59 Intake Total 1200 700 Output Total 330 1500 200 Balance 870 -800 -200 Gen: alert and oriented, sitting up in bed RLE -TALIA wrap and brace in place, no breakthrough -intact EHL/FHL/GS/TA -SILT foot - Time Spent With Patient Time Spent With Patient: 10m ICD10 Worksheet Patient Problems: Problems Problem Status Onset Fracture of distal femur Acute T12 compression fracture Acute Fracture of proximal end of femur Active UTI (urinary tract infection) Acute Vertigo Acute Vomiting Acute
[2017-05-11] MEDS: ATORVASTATIN CALCIUM 20 MG TAB PO SCH (21:35)
[2017-05-11] MEDS: PATCH REMOVAL 1 EA PATCH TD SCH (21:38)
[2017-05-12] MEDS: ACETAMINOPHEN 325 MG TAB PO PRN (04:34)
[2017-05-12] MEDS: oxyCODONE IR 5 MG TAB PO PRN ×5 (04:35→20:54)
[2017-05-12 05:29] LABS: PLATELET COUNT 195 10^3/uL (150-400)
--- NOTE | 2017-05-12 06:31 | SOAPPROG ---
SOAP Progress Note Assessment/Plan: Assessment: s/p orif right supracondylar femur fx Plan:continue mobilization with pt will need snf nonweight bearing right lower ext continue dvt prophylaxis anemia hct 24 05/12/17 06:29 Subjective: mild pain no cp or sob currently Objective: Vital Signs Temp Pulse Resp BP Pulse Ox 37.3 C 105 H 16 118/63 96 05/11/17 23:36 05/11/17 23:36 05/11/17 23:36 05/11/17 23:36 05/11/17 23:36 Laboratory Results 05/12/17 04:23 05/12/17 04:23 05/11/17 05/12/17 05/13/17 05:59 05:59 05:59 Intake Total 700 1011 Output Total 1500 775 Balance -800 236 dressing intact mild swelling right lower ext mild right calf ttp intact active pf,df,ehl toes warm and pink neg homans jose ICD10 Worksheet Patient Problems: Problems Problem Status Onset Fracture of distal femur Acute T12 compression fracture Acute Fracture of proximal end of femur Active UTI (urinary tract infection) Acute Vertigo Acute Vomiting Acute
[2017-05-12] MEDS: METHOCARBAMOL 750 MG TAB PO SCH ×3 (08:12→20:54)
[2017-05-12] MEDS: LEVOTHYROXINE 75 MCG TAB PO SCH (08:12)
[2017-05-12] MEDS: SENNOSIDES/DOCUSATE SODIUM TAB PO SCH ×2 (08:13→20:53)
[2017-05-12] MEDS: VITAMIN B COMPLEX 1 EA CAP/TAB PO SCH (08:13)
[2017-05-12] MEDS: CHOLECALCIFEROL VIT D3 1,000 UNITS TAB PO SCH (08:13)
[2017-05-12] MEDS: FERROUS SULFATE 325 MG TAB PO SCH (08:13)
[2017-05-12] MEDS: ENOXAPARIN 40 MG/0.4 ML SYR SC SCH (08:14)
[2017-05-12] MEDS: INSULIN GLARGINE 100 UNITS/ML UNIT SC SCH (08:14)
[2017-05-12] MEDS: INSULIN LISPRO 100 UNIT/ML SC SCH ×3 (08:14→16:35)
[2017-05-12] MEDS: POLYETHYLENE GLYCOL 3350 17 GM PKT PO SCH ×2 (08:14→20:53)
[2017-05-12] MEDS: LIDOCAINE 4%/MENTHOL 1% PATCH TD SCH (08:15)
--- NOTE | 2017-05-12 08:25 | HOSPPROG ---
Hospitalist Progress Note Assessment/Plan: 76 yo F w/ DM and CAD presents after a fall and found to have femoral fracture and spinal compression fracture. * femoral fracture - Severely comminuted intra-articular fracture of the distal femoral meta-epiphysis. - s/p ORIF distal femur with Dr Schaffer POD 3 -need to get her pain under better control prior to dc * Constipation -resolved -on bowel protocol * Low back pain - pt reports historically she will will get intermittent discomfort - K pad and Lidoderm patch *low Vitamin D level -calcium and D have been added to her medication profile *T12 compression fx, mild anterior wedge -having more pain today -followed by trauma surgeon who recommends IS and TLSO brace -the patient is having more pain with the TLSO brace while sitting in the chair *leukocytosis -resolved *anemia -ABL -recheck in a.m. *renal insufficiency -creat is 1 * IDDM - SSI standard protocol - resumed insulin glargine and Metformin * CAD - Patient reports hx of 2 cardiac stents in 2005 -had a heart catheterization in 2014 that was unremarkable w minimal CAD *dvt prophylaxis: resumed Enox and continue for [address] Schaffer Disposition - therapy recommended SNF rehab/ she will go to [facility] , she is quite pale today and fatigued. Will recheck hgb and hct in a.m. and if stable will dc /. Subjective: Alex is having significant pain to her rle while in the chair, isn 't able to get comfortable with the brace on. Objective: Vital Signs Temp Pulse Resp BP Pulse Ox 36.9 C 84 12 96/57 L 95 05/12/17 07:51 05/12/17 07:51 05/12/17 07:51 05/12/17 07:51 05/12/17 07:51 Laboratory Results 05/12/17 04:23 05/12/17 04:23 05/11/17 05/12/17 05/13/17 05:59 05:59 05:59 Intake Total 700 1011 Output Total 1500 775 Balance -800 236 - Physical Exam Constitutional: chronically ill appearing, uncomfortable, No not in pain Eyes: PERRL Ears, Nose, Mouth, Throat: hearing normal Respiratory: no respiratory distress Gastrointestinal: normoactive bowel sounds Skin: warm Musculoskeletal: generalized weakness Neurologic: AAOx3 Psychiatric: interacting appropriately ICD10 Worksheet Patient Problems: Problems Problem Status Onset Fracture of distal femur Acute T12 compression fracture Acute Fracture of proximal end of femur Active UTI (urinary tract infection) Acute Vertigo Acute Vomiting Acute
[2017-05-12] MEDS: ACETAMINOPHEN 500 MG TAB PO SCH ×3 (11:50→20:54)
--- NOTE | 2017-05-12 19:35 | SOAPPROG ---
ELODIA Progress Note Assessment/Plan: Assessment: 36-year-old female with right intertrochanteric intra-articular femur fracture which has been ORIF Do complains of some knee and ankle pain on the right side as well as some low back pain T12 mild compression fracture which may be old Patient was treated with a TLSO brace but does not appear to tolerate that well Plan: 2 rehab soon 05/12/17 19:33 Objective: Vital Signs Temp Pulse Resp BP Pulse Ox 36.9 C 83 16 93/43 L 100 05/12/17 15:33 05/12/17 15:33 05/12/17 15:33 05/12/17 15:33 05/12/17 15:33 Laboratory Results 05/12/17 04:23 05/12/17 04:23 05/11/17 05/12/17 05/13/17 05:59 05:59 05:59 Intake Total 700 1011 Output Total 1500 775 Balance -800 236 ICD10 Worksheet Patient Problems: Problems Problem Status Onset Fracture of distal femur Acute T12 compression fracture Acute Fracture of proximal end of femur Active UTI (urinary tract infection) Acute Vertigo Acute Vomiting Acute
[2017-05-12] MEDS: ATORVASTATIN CALCIUM 20 MG TAB PO SCH (20:54)
[2017-05-12] MEDS: PATCH REMOVAL 1 EA PATCH TD SCH (20:55)
[2017-05-13] MEDS: oxyCODONE IR 5 MG TAB PO PRN ×5 (05:47→21:28)
[2017-05-13] MEDS: LEVOTHYROXINE 75 MCG TAB PO SCH (05:47)
--- NOTE | 2017-05-13 08:32 | TRAUMAPN ---
<Kan Moralesn - Last Filed: 05/13/17 08:33> Trauma Progress Note Assessment/Plan: A/P: 76yo F s/p fall with R femur fx s/p ORIF, T12 compression fracture Pain not well controlled today TLSO brace too big - work today to get fitted better. will call Bran from [facility] PT/OT S: "Pain made me cry for the first time", combination of both back and leg pain. full sensation of R foot O: laying in bed, brace RLE CTAB decreased at bases Objective: Vital Signs Temp Pulse Resp BP Pulse Ox 36.7 C 92 16 144/58 H 100 05/13/17 08:00 05/13/17 08:00 05/13/17 08:00 05/13/17 08:00 05/13/17 08:00 Laboratory Results 05/13/17 04:22 05/12/17 04:23 05/12/17 05/13/17 05/14/17 05:59 05:59 05:59 Intake Total 1011 100 Output Total 775 450 Balance 236 -350 <Dulce Hunter S - Last Filed: 05/13/17 22:07> Trauma Progress Note Assessment/Plan: Femur fx, s/p ORIF - prolonged NWB. 21 days DVT prophylaxis T12 compression fx on admit CT but pain not at T12 and radiates down leg. Appreciate NSG seeing her. Got MRI which showed L45 stenosis. Started gabapentin. F/U Dr. Mcelroy in 3-4 weeks Will need SNF PT/OT S . ++ + + + + + + + ++ +++++++++++++ Objective: Vital Signs Temp Pulse Resp BP Pulse Ox 36.8 C 87 20 91/40 L 99 05/13/17 18:33 05/13/17 18:33 05/13/17 18:33 05/13/17 18:33 05/13/17 18:33 Laboratory Results 05/13/17 04:22 05/12/17 04:23 05/12/17 05/13/17 05/14/17 05:59 05:59 05:59 Intake Total 1011 100 250 Output Total 775 450 Balance 236 -350 250 Physical Exam - Physical Exam General Appearance: WD/WN, alert, mild distress EENT: PERRL/EOMI, normal ENT inspection, No scleral icterus (R), No scleral icterus (L), No hearing deficit Neck: non-tender, full range of motion Respiratory: lungs clear, decreased breath sounds Cardiac/Chest: regular rate, rhythm Abdomen: normal bowel sounds, non-tender, soft Back: Normal inspection, Other (tender lower back) Skin: normal color, warm/dry Extremities: other (splint on R leg)
--- NOTE | 2017-05-13 08:58 | SOAPPROG ---
SOAP Progress Note Assessment/Plan: Assessment: POD#4 s/p ORIF R distal femur -increased pain today, she is having more pain in the lower back than in the knee -pain radiates down to her hip. CT and xrays of the hip were negative for fracture -dressing changed by nursing staff yesterday Plan: -appreciate care of trauma and hospitalist teams -PT/OT -pain ctrl -DVT prophy with Lovenox (21 d total) -TLSO for T12 fx per trauma notes, though she has not been able to tolerate the brace. -the patient would likely benefit from acute rehab or SNF, as she lives alone and will not be able to bear weight on that leg for a prolonged period of time 05/13/17 08:59 Subjective: Pt appears uncomfortable this morning. States that her lower back has been causing pain. This is more than the knee. Pain radiates down to the hip. Objective: Vital Signs Temp Pulse Resp BP Pulse Ox 36.5 C 76 16 91/51 L 100 05/13/17 00:00 05/13/17 00:00 05/13/17 00:00 05/13/17 00:00 05/13/17 00:00 Laboratory Results 05/13/17 04:22 05/12/17 04:23 05/12/17 05/13/17 05/14/17 05:59 05:59 05:59 Intake Total 1011 100 Output Total 775 450 Balance 236 -350 Exam: RLE -dressing in place, c/d/i, no breakthrough -intact EHL/FHL/TA/GS -SILT foot ICD10 Worksheet Patient Problems: Problems Problem Status Onset Fracture of distal femur Acute T12 compression fracture Acute Fracture of proximal end of femur Active UTI (urinary tract infection) Acute Vertigo Acute Vomiting Acute
[2017-05-13] MEDS: ACETAMINOPHEN 500 MG TAB PO SCH ×3 (09:17→21:28)
[2017-05-13] MEDS: CHOLECALCIFEROL VIT D3 1,000 UNITS TAB PO SCH (09:18)
[2017-05-13] MEDS: METHOCARBAMOL 750 MG TAB PO SCH ×3 (09:18→21:28)
[2017-05-13] MEDS: SENNOSIDES/DOCUSATE SODIUM TAB PO SCH ×2 (09:18→21:27)
[2017-05-13] MEDS: INSULIN GLARGINE 100 UNITS/ML UNIT SC SCH (09:19)
[2017-05-13] MEDS: ENOXAPARIN 40 MG/0.4 ML SYR SC SCH (09:19)
[2017-05-13] MEDS: HYDROmorphone HCL/NS 0.5 MG/ML SYR IVP PRN (09:19)
[2017-05-13] MEDS: INSULIN LISPRO 100 UNIT/ML SC SCH ×3 (09:19→18:42)
[2017-05-13] MEDS: LIDOCAINE 4%/MENTHOL 1% PATCH TD SCH (09:24)
[2017-05-13] MEDS: POLYETHYLENE GLYCOL 3350 17 GM PKT PO SCH ×2 (09:24→21:29)
[2017-05-13] MEDS ORDERED: FUROSEMIDE 20 MG/2 ML VIAL IVP ONE ×2 (09:39→14:00)
[2017-05-13] MEDS ORDERED: ACETAMINOPHEN 325 MG TAB PO ONE ×2 (09:39→14:00)
--- NOTE | 2017-05-13 09:39 | HOSPPROG ---
Hospitalist Progress Note Assessment/Plan: 76 yo F w/ DM and CAD presents after a fall and found to have femoral fracture and spinal compression fracture. * femoral fracture - Severely comminuted intra-articular fracture of the distal femoral meta-epiphysis. - s/p ORIF distal femur with Dr Schaffer POD 4 * Constipation -resolved -on bowel protocol * Low back pain - pt reports historically she will will get intermittent discomfort - K pad and Lidoderm patch -reviewed her care with Neurosurgery, they have ordered an MRI due to radicular pain *low Vitamin D level -calcium and D have been added to her medication profile *T12 compression fx, mild anterior wedge -having more pain today -followed by trauma surgeon who recommends IS and TLSO brace -the patient is having more pain with the TLSO brace while sitting in the chair *leukocytosis -resolved *anemia -ABL -trending down, will transfuse a unit of PRBC's today *renal insufficiency -creat is 1 * IDDM - SSI standard protocol - resumed insulin glargine and Metformin * CAD - Patient reports hx of 2 cardiac stents in 2005 -had a heart catheterization in 2014 that was unremarkable w minimal CAD *dvt prophylaxis: resumed Enox and continue for [address] Schaffer Disposition - pending, will give a unit of PRBC's now followed w [facility], f/u with MRI Subjective: Alex is feeling poorly today, more pain down right buttock down her leg. Is tired. Objective: Vital Signs Temp Pulse Resp BP Pulse Ox 36.7 C 92 16 144/58 H 100 05/13/17 08:00 05/13/17 08:00 05/13/17 08:00 05/13/17 08:00 05/13/17 08:00 Laboratory Results 05/13/17 04:22 05/12/17 04:23 05/12/17 05/13/17 05/14/17 05:59 05:59 05:59 Intake Total 1011 100 Output Total 775 450 Balance 236 -350 - Physical Exam Constitutional: chronically ill appearing, uncomfortable, No not in pain Eyes: PERRL Ears, Nose, Mouth, Throat: hearing normal Cardiovascular: regular rate and rhythym Respiratory: no respiratory distress Skin: warm, No normal color (pale) Musculoskeletal: muscular tenderness, generalized weakness Neurologic: AAOx3 Psychiatric: interacting appropriately ICD10 Worksheet Patient Problems: Problems Problem Status Onset Fracture of distal femur Acute T12 compression fracture Acute Fracture of proximal end of femur Active UTI (urinary tract infection) Acute Vertigo Acute Vomiting Acute
--- NOTE | 2017-05-13 12:22 | GCON ---
[f rep st] CONSULTATION NEUROSURGERY CONSULTATION. CHIEF COMPLAINT: Back pain. HPI: The patient is a 76-year-old female patient who presented to the [facility] 08, 2017. She had a fall where she slipped in her house and injured her right leg. She was unable to get up. She was not found for several hours until her housemate found her. She was found to have a right femoral fracture. She was admitted for pain control and surgical consultation. She subsequently underwent open reduction, internal fixation by Dr. Schaffer with Orthopedics. She was also found to have an age indeterminate T12 compression fracture and a brace was given for this. She was placed in a TLSO brace. This morning, the patient has had continued pain that has not been respondin g well to the brace and the neurosurgery service was consulted by Dr. Copeland. Dr. Mcelroy. And I saw the patient this morning. On examination, the patient was resting in bed. She states that she oz nues to have significant right leg pain after her surgery. 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 She states since then she has had on again off again back problems, b ut nothing has ever been this severe. She also states that years ago she may have had some kind of i maging done, perhaps a chest x-ray, and someone asked her if she had ever broken her back before, but she did not have any symptoms. Her biggest complaint currently is lower back pain that radiates int o her right buttock area. She does not have any mid back pain. She does also have some mild sorenes s between her shoulder blades. She denies any weakness in her left lower extremity. Her right lower extremity is in a brace. Denies any new numbness or tingling in her legs. REVIEW OF SYSTEMS: Please see above mentioned in the HPI. ALLERGIES: Sulfa, enalapril. PAST MEDICAL HISTORY: Significant for coronary artery disease, type 2 diabetes. PAST SURGICAL HISTORY: Includes a hysterectomy and also open reduction, internal fixation of right f emur fracture. FAMILY HISTORY: Positive for type 2 diabetes. SOCIAL HISTORY: The patient is a former smoker. She lives in a home with a roommate. PHYSICAL EXAMINATION: VITAL SIGNS: Blood pressure is 144/58, pulse 92, respirations 16, O2 saturati ons 100% on 2 L of oxygen via nasal cannula, temperature is 36.7. GENERAL: Well-developed, well-no urished, elderly female patient in no acute distress. Cranial nerves 2-12 are grossly intact. The p atient is nontender to palpation over the lower thoracic and upper lumbar spine. She localizes her p ain to the lower lumbar spine and into the right buttock. She is mildly tender to palpation between her shoulder blades. Motor examination of the right lower extremity is mostly deferred given her spl int, but dorsiflexion and plantar flexion are intact. The patient has intact sensation in her right foot. Motor examination of bilateral left extremity is 5/5 for hip flexion, flexion and extension of the knee and plantar and dorsiflexion. She has intact sensation over this leg. She moves both arms well without any deficits noted. LABORATORY: Hemoglobin 7.2, hematocrit 21.7. Last BMP, sodium 139, potassium 4.1, chloride 106, car bon dioxide 26, anion gap 7, BUN 20, creatinine 1.0, GFR 54, glucose 188, calcium 8.0. PERTINENT IMAGING: Lumbar spine CT, mild anterior wedge deformity/compression fracture T12, likely a cute, multilevel degenerative changes with at least moderate canal stenosis at L4-5 as above. IMPRESSION: This is a 76-year-old female patient with right-sided lower back pain that radiates into her right buttock area. She has also recently undergone surgical fixation of right femur fracture. PLAN: Dr. Mcelroy and I have both seen the patient this morning. She does have a long history of zahraa k problems stemming from an incident when she was working in a department store as a teenager. How er, she states her pain has never been this severe. She did undergo a CT scan in the emergency room, which showed a likely acute T12 compression fracture and also some degeneration down at L4-L5. We w ould like to evaluate this better with an MRI. She is not tolerating her brace very well. We will w ait to see what this MRI shows, but I feel that her pain is not localized to this T12 area and it is likely that this may be old as she states that years ago she had an x-ray and someone asked her when she had broken her back. Neurosurgery will continue to follow along this patient. Will determine fur ther treatment plans based on her imaging results. Please contact the Neurosurgery service of any ne urologic changes or any additional questions or concerns. /[phone]/MODL
--- NOTE | 2017-05-13 15:45 | NEUSURGPN ---
Assessment/Plan: A: 76 yo F s/p fall with femur fx s/p ORIF and low back pain/right buttock pain. Plan: -MRI L spine reviewed with Dr. Mcelroy, shows stenosis at L45 likely causing a right sided radiculopathy. -Recommend trial of low dose gabapentin -Follow up with Dr. Mcelroy in about 3-4 weeks as outpatient -Do not recommend JASON at this time given recent fracture/surgery -D/w Dr Mcelroy -D/w LYN Cannon -NS will sign off and follow peripherally, please call with any questions - Physician Discussed Patient with : [facility] Physical Exam - Vitals, I&O, Labs I and O 05/12/17 05/13/17 05/14/17 05:59 05:59 05:59 Intake Total 1011 100 Output Total 775 450 Balance 236 -350 Intake: Oral (ml) 936 100 IV Infused (ml) 75 Lr 1,000 ml @ 75 mls/hr 75 IV CONT GENE Rx#: [id number] Output: Urine (ml) 775 450 Bedpan 350 Bedside Commode 425 450 Other: Number of Voids Bedside Commode 1 1 Number of Stools Bedside Commode 1 Bladder Scan Volume (ml) Bedside Commode 183 Vital Signs Temp Pulse Resp BP Pulse Ox 36.7 C 81 16 110/43 L 92 05/13/17 15:26 05/13/17 15:26 05/13/17 15:26 05/13/17 15:26 05/13/17 15:26 Laboratory Results 05/13/17 04:22 05/12/17 04:23 ICD10 Worksheet Patient Problems: Problems Problem Status Onset Fracture of distal femur Acute T12 compression fracture Acute Fracture of proximal end of femur Active UTI (urinary tract infection) Acute Vertigo Acute Vomiting Acute
--- NOTE | 2017-05-13 16:15 | ASMTCMCOM ---
CM Note CM Note Notes: Spoke with Tarik @ , they will not have any beds available. I spoke with patient, and she prefers [facility]. They have accepted. Patient had some setbacks today requiring a neurosurgery consult and blood transfusion. Discharge date is TBD, we will continue to update the SNF. Date Signed: 05/13/2017 04:14 PM Electronically Signed By:Junie Blackman RN
[2017-05-13] MEDS: ATORVASTATIN CALCIUM 20 MG TAB PO SCH (21:27)
[2017-05-13] MEDS: PATCH REMOVAL 1 EA PATCH TD SCH (21:30)
[2017-05-13 23:01] VITALS: RESP 16
[2017-05-14] MEDS: oxyCODONE IR 5 MG TAB PO PRN ×5 (04:31→22:41)
[2017-05-14] MEDS: CALCIUM CARBONATE 500 MG CHEWABLE TAB PO PRN ×3 (04:31→19:28)
[2017-05-14] MEDS: LEVOTHYROXINE 75 MCG TAB PO SCH (05:26)
[2017-05-14] MEDS: METHOCARBAMOL 750 MG TAB PO SCH ×3 (08:31→20:38)
[2017-05-14] MEDS: CHOLECALCIFEROL VIT D3 1,000 UNITS TAB PO SCH (08:32)
[2017-05-14] MEDS: ACETAMINOPHEN 500 MG TAB PO SCH ×3 (08:32→20:38)
[2017-05-14] MEDS: SENNOSIDES/DOCUSATE SODIUM TAB PO SCH ×2 (08:32→20:39)
[2017-05-14] MEDS: INSULIN LISPRO 100 UNIT/ML SC SCH ×3 (08:33→18:36)
[2017-05-14] MEDS: INSULIN GLARGINE 100 UNITS/ML UNIT SC SCH (08:33)
[2017-05-14] MEDS: POLYETHYLENE GLYCOL 3350 17 GM PKT PO SCH ×2 (08:33→20:39)
[2017-05-14] MEDS: ENOXAPARIN 40 MG/0.4 ML SYR SC SCH (08:33)
[2017-05-14] MEDS: LIDOCAINE 4%/MENTHOL 1% PATCH TD SCH (08:34)
--- NOTE | 2017-05-14 09:08 | TRAUMAPN ---
Trauma Progress Note Assessment/Plan: s/p fall/distal femur fx s/p ORIF transfusion yesterday for blood loss anemia MRI spine confirms old T12 compression fx Lumbar stenosis/DDD + "pelvic mass" upon further questioning her "partial hysterectomy" was actually a bilateral oophorectomy. She believes her uterus is still in. will confirm with pelvic ultrasound. Subjective: tearful this morning/reports good pain control Objective: Vital Signs Temp Pulse Resp BP Pulse Ox 36.5 C 68 16 109/56 L 98 05/14/17 08:00 05/14/17 08:00 05/14/17 08:00 05/14/17 08:00 05/14/17 08:00 Laboratory Results 05/14/17 04:31 05/14/17 04:31 05/13/17 05/14/17 05/15/17 05:59 05:59 05:59 Intake Total 100 250 Output Total 450 Balance -350 250 - C-Spine Clearance Cervical Spine Cleared: Yes Provider who Cleared Cervical Spine: GONSALO Physical Exam - Physical Exam General Appearance: alert, mild distress Neck: non-tender Respiratory: chest non-tender, lungs clear, normal breath sounds Cardiac/Chest: regular rate, rhythm Abdomen: non-tender, soft Pelvic Exam: deferred Rectal: deferred Extremities: other (distal N/V intact, dressing dry) Neuro/Psych: alert, normal mood/affect (tearful recalling the of her oldest brother), oriented x 3
--- NOTE | 2017-05-14 13:09 | SOAPPROG ---
SOAP Progress Note Assessment/Plan: Assessment: POD#5 s/p ORIF R distal femur -Pain is better controlled today. She appears in better spirits -pain radiates down to her hip. CT and xrays of the hip were negative for fracture -dressing changed by nursing staff yesterday after MRI Plan: -appreciate care of trauma and hospitalist teams -PT/OT -pain ctrl -DVT prophy with Lovenox (21 d total) -Trauma and Nsgy following for the T12 fx -the patient would likely benefit from acute rehab or SNF, as she lives alone and will not be able to bear weight on that leg for a prolonged period of time 05/13/17 08:59 05/14/17 13:06 Subjective: Continues to c/o back and knee pain, however overall she is doing better today. Objective: Vital Signs Temp Pulse Resp BP Pulse Ox 36.5 C 68 16 109/56 L 98 05/14/17 08:00 05/14/17 08:00 05/14/17 08:00 05/14/17 08:00 05/14/17 08:00 Laboratory Results 05/14/17 04:31 05/14/17 04:31 05/13/17 05/14/17 05/15/17 05:59 05:59 05:59 Intake Total 100 250 Output Total 450 Balance -350 250 Gen: NAD Msk: -dressing in place, no serosang breakthrough. Changed last night for MRI per pt. Brace in place -NV intact distally - Time Spent With Patient Time Spent With Patient: 10m ICD10 Worksheet Patient Problems: Problems Problem Status Onset Fracture of distal femur Acute T12 compression fracture Acute Fracture of proximal end of femur Active UTI (urinary tract infection) Acute Vertigo Acute Vomiting Acute
--- NOTE | 2017-05-14 15:36 | HOSPPROG ---
Hospitalist Progress Note Assessment/Plan: 76 yo F w/ DM and CAD presents after a fall and found to have femoral fracture and spinal compression fracture. * femoral fracture - Severely comminuted intra-articular fracture of the distal femoral meta-epiphysis. - s/p ORIF distal femur with Dr Schaffer POD 5 *pelvic mass -incidental finding on the MRI of the back -ultrasound shows leiomyoma (she can get f/u w PCP in OP setting for this) * Constipation -resolved -on bowel protocol * Low back pain - pt reports historically she will will get intermittent discomfort - K pad and Lidoderm patch -reviewed her care with Neurosurgery, they have ordered an MRI due to radicular pain *low Vitamin D level -calcium and D have been added to her medication profile *T12 compression fx, mild anterior wedge -does better without the TLSO brace/ ok not to use *leukocytosis -resolved *anemia -ABL -improved w transfusion *renal insufficiency -creat is 1 * IDDM - SSI standard protocol - resumed insulin glargine and Metformin * CAD - Patient reports hx of 2 cardiac stents in 2005 -had a heart catheterization in 2014 that was unremarkable w minimal CAD *dvt prophylaxis: resumed Enox and continue for [address] Schaffer Disposition - patient will hopefully be ready for dc soon. Reviewed her care with Dr Arauz. Subjective: Johnathon is having ongoing pain, was very tearful during my assessment earlier today. Says she isn't ready to be dc. Objective: Vital Signs Temp Pulse Resp BP Pulse Ox 36.5 C 68 16 109/56 L 98 05/14/17 08:00 05/14/17 08:00 05/14/17 08:00 05/14/17 08:00 05/14/17 08:00 Laboratory Results 05/14/17 04:31 05/14/17 04:31 05/13/17 05/14/17 05/15/17 05:59 05:59 05:59 Intake Total 100 250 Output Total 450 Balance -350 250 - Physical Exam Constitutional: appears nourished, chronically ill appearing, uncomfortable, No not in pain Eyes: PERRL Ears, Nose, Mouth, Throat: hearing normal Cardiovascular: regular rate and rhythym Respiratory: no respiratory distress Skin: warm Musculoskeletal: other (significant weakness due to immobility of right leg and back pain) Neurologic: AAOx3 Psychiatric: interacting appropriately ICD10 Worksheet Patient Problems: Problems Problem Status Onset Fracture of distal femur Acute T12 compression fracture Acute Fracture of proximal end of femur Active UTI (urinary tract infection) Acute Vertigo Acute Vomiting Acute
[2017-05-14] MEDS: ATORVASTATIN CALCIUM 20 MG TAB PO SCH (20:39)
[2017-05-14] MEDS: ONDANSETRON DISINTEGRATING 4 MG TAB PO PRN (22:41)
[2017-05-14] MEDS: PATCH REMOVAL 1 EA PATCH TD SCH ×2 (22:42→22:43)
[2017-05-15] MEDS: CALCIUM CARBONATE 500 MG CHEWABLE TAB PO PRN ×2 (04:49→16:54)
[2017-05-15] MEDS: oxyCODONE IR 5 MG TAB PO PRN ×4 (04:50→16:53)
[2017-05-15] MEDS: LEVOTHYROXINE 75 MCG TAB PO SCH (04:50)
[2017-05-15 07:33] VITALS: BP 115/54; PULSE 76; TEMP 98.1; O2SAT 94
--- NOTE | 2017-05-15 08:16 | TRAUMAPN ---
Trauma Progress Note Assessment/Plan: 76yo F s/p mech fall c R distal femur fx s/p ORIF, old T12 fx - Neuro: pain is well controlled. C/o worsening R leg pain after therapy yesterday. plain failm pending - Pulm: lungs clear, working on her IS - CV: HDS - Heme: Hb stable last 2 days after PRBC transfusion, ABLA from trauma/OR - Abd: soft, tolerating diet, having bowel function - Dispo: likely to SNF later today. Subjective: C/o R hip pain. Objective: Vital Signs Temp Pulse Resp BP Pulse Ox 36.7 C 76 16 115/54 L 94 05/15/17 07:31 05/15/17 07:31 05/15/17 07:31 05/15/17 07:31 05/15/17 07:31 Laboratory Results 05/15/17 04:46 05/14/17 04:31 05/14/17 05/15/17 05/16/17 05:59 05:59 05:59 Intake Total 250 350 Balance 250 350 - C-Spine Clearance Cervical Spine Cleared: Yes Provider who Cleared Cervical Spine: GONSALO
[2017-05-15] MEDS: VITAMIN B COMPLEX 1 EA CAP/TAB PO SCH (08:45)
[2017-05-15] MEDS: FERROUS SULFATE 325 MG TAB PO SCH (08:45)
[2017-05-15] MEDS: INSULIN LISPRO 100 UNIT/ML SC SCH ×2 (08:46→14:30)
--- NOTE | 2017-05-15 09:10 | SOAPPROG ---
SOAP Progress Note Assessment/Plan: Assessment: POD#6 s/p ORIF R distal femur -xray ordered of the R femur as the pt complained of new pain in her knee. Xrays normal. Hardware intact Plan: -appreciate care of trauma and hospitalist teams -PT/OT -pain ctrl -DVT prophy with Lovenox (21 d total) -Trauma and Nsgy following for the T12 fx -the patient would likely benefit from acute rehab or SNF, as she lives alone and will not be able to bear weight on that leg for a prolonged period of time -d/c to SNF when medically ready 05/13/17 08:59 05/14/17 13:06 05/15/17 09:07 Subjective: States that her R knee and lower back hurt more today after a PT session Objective: Vital Signs Temp Pulse Resp BP Pulse Ox 36.7 C 76 16 115/54 L 94 05/15/17 07:31 05/15/17 07:31 05/15/17 07:31 05/15/17 07:31 05/15/17 07:31 Laboratory Results 05/15/17 04:46 05/14/17 04:31 05/14/17 05/15/17 05/16/17 05:59 05:59 05:59 Intake Total 250 350 Balance 250 350 RLE -dressing in place, c/d/i -intact EHL/FHL/TA/GS -SILT foot - Time Spent With Patient Time Spent With Patient: 10m ICD10 Worksheet Patient Problems: Problems Problem Status Onset Fracture of distal femur Acute T12 compression fracture Acute Fracture of proximal end of femur Active UTI (urinary tract infection) Acute Vertigo Acute Vomiting Acute
[2017-05-15] MEDS: LIDOCAINE 4%/MENTHOL 1% PATCH TD SCH (09:38)
[2017-05-15] MEDS: ACETAMINOPHEN 500 MG TAB PO SCH ×2 (09:38→16:31)
[2017-05-15] MEDS: METHOCARBAMOL 750 MG TAB PO SCH ×2 (09:39→16:31)
[2017-05-15] MEDS: CHOLECALCIFEROL VIT D3 1,000 UNITS TAB PO SCH (09:39)
[2017-05-15] MEDS: ENOXAPARIN 40 MG/0.4 ML SYR SC SCH (09:40)
[2017-05-15] MEDS: SENNOSIDES/DOCUSATE SODIUM TAB PO SCH (09:41)
[2017-05-15] MEDS: POLYETHYLENE GLYCOL 3350 17 GM PKT PO SCH (09:41)
[2017-05-15] MEDS: INSULIN GLARGINE 100 UNITS/ML UNIT SC SCH (10:35)
--- NOTE | 2017-05-15 14:45 | PDIAF ---
- Diagnosis Diagnosis: femur fx Code Status: Full Code - Medication Management Discharge Medications: Medications to Continue on Transfer Furosemide [Lasix 20 MG (*)] 20 mg PO Q3D 03/29/12 [Last Taken 03/27/12] Levothyroxine [Synthroid 75 mcg (*)] 75 mcg PO [id number]@06 03/29/12 [Last Taken 05/08/17] Simvastatin [Zocor 40 mg] 40 mg PO HS 03/29/12 [Last Taken 05/07/17] Spironolactone [Aldactone 25 MG (*)] 25 mg PO Q3D 03/29/12 [Last Taken 03/28/12] Vitamin B Complex [Vitamin B Complex (OTC)] 1 each PO Q3D 03/29/12 [Last Taken 03/29/12 08:00] metFORMIN HCL [Glucophage 500 mg (*)] 500 mg PO BIDMEAL 03/29/12 [Last Taken 09:00] Calcium Carbonate [Tums 500MG (*)] 500 - 1,000 mg PO Q4 PRN 01/14/16 [Last Taken Unknown] Insulin Glargine [Lantus 100 UNITS/ML (*)] 0 units SC DAILY 01/14/16 [Last Taken 05/08/17 32 units] Acetaminophen [Tylenol 325mg (*)] 325 mg PO DAILY PRN 05/09/17 [Last Taken Unknown] Ferrous Sulfate [Ferrous Sulf 325 MG (*)] 325 mg PO Q3D 05/09/17 [Last Taken Unknown] Acetaminophen [Tylenol ES 500 mg (*)] 1,000 mg PO TID tab 05/15/17 [Last Taken Unknown] Cholecalciferol Vit D3 [Vitamin D3 (*)] 1,000 units PO DAILY tab 05/15/17 [ Last Taken Unknown] Enoxaparin [Lovenox 40 MG (*)] 40 mg SC DAILY syr 05/15/17 [Last Taken Unknown] Insulin Lispro [HumaLOG LISPRO] 0 unit SC TIDMEAL unit 05/15/17 [Last Taken Unknown] Lidocaine 4%/Menthol 1% [Icy Hot Lidocaine/Menthol 4%/1% Patch (*)] 1 patch TD DAILY patch 05/15/17 [Last Taken Unknown] Methocarbamol [Robaxin 750 mg (*)] 750 mg PO TID tab 05/15/17 [Last Taken Unknown] Patch Removal 1 ea TD DAILY21 patch 05/15/17 [Last Taken Unknown] Polyethylene Glycol 3350 [Miralax 17 gm (*)] 17 gm PO BID pkt 05/15/17 [Last Taken Unknown] Sennosides/Docusate Sodium [Senokot-S] 1 - 2 tab PO BID tab 05/15/17 [Last Taken Unknown] oxyCODONE IR [Oxycodone Ir (*)] 10 - 15 mg PO Q3H PRN tab 05/15/17 [Last Taken Unknown] Discharge Medications: Refer to the Discharge Home Medication list for PRN reason. PICC Care - Routine: N/A - Orders Services needed: Registered Nurse, Physical Therapy, Occupational Therapy Diet Recommendation: no restrictions on diet - Follow Up Care Current Providers and Referrals: Manny Arauz MD [Medical Doctor] - Bridgett Mcelroy MD [Medical Doctor] - Patient,NotPresent [Unknown] - As per Instructions Lenny Schaffer MD [Medical Doctor] -
--- NOTE | 2017-05-15 15:18 | ASMTCMCOM ---
CM Note CM Note Notes: Pt medically stable for d/c to [facility]. Orders sent in [employer]. Summer with scheduled a stretcher transport for 1630, this CM completed the PCS. OMI Vieira to call report. Date Signed: 05/15/2017 03:17 PM Electronically Signed By:TRACY Mendez
--- NOTE | 2017-05-15 16:59 | GDS ---
[f rep st] DISCHARGE SUMMARY DISCHARGE DIAGNOSES: 1. Femoral fracture. 2. Pelvic mass. 3. Constipation. 4. Low back pain. 5. T12 compression fracture. 6. Low vitamin D. 7. Leukocytosis. 8. Anemia. 9. Renal insufficiency. 10. Diabetes mellitus. 11. History of coronary artery disease. CONSULTATIONS: 1. Lenny Schaffer MD of Orthopedics. 2. Manny Arauz MD of Trauma surgery. 3. Neurosurgery. STUDIES AND PROCEDURES DONE: 1. Femur x-ray. 2. Right ORIF of the distal femur. 3. Pelvic and renal ultrasound noting a right-sided leiomyoma. 4. Lumbar spine MRI with noted pelvic mass and degenerative disk disease and T12 compression deformi ty. 5. CT of the right extremity. 6. Lumbar spine CT. 7. Lumbar spine x-rays and multiple other x-rays. PHYSICAL EXAM: GENERAL: The patient is alert. VITAL SIGNS: Afebrile at 36.7, pulse 76, respirator y rate is 16, blood pressure is 115/54. She is saturating 94% on room air. I have seen and evaluate d the patient on the day of discharge. HOSPITAL COURSE: The patient is a 76-year-old female who presented to the emergency room after suffe ring a mechanical fall. She was evaluated and diagnosed with: 1. Distal right femoral fracture. During this hospitalization, she received a surgical intervention with ORIF by Dr. Schaffer of her distal femur. She is in a brace and tolerating this well. She will req uire physical therapy as well as occupational therapy at rehabilitation center. 2. Incidental finding of a pelvic mass. The patient has been educated that she does have a pelvic m ass noted on MRI as well as ultrasound. She is to follow up with her primary care physician in the o utpatient setting for further diagnostic evaluation of this pelvic mass. 3. Constipation. This has resolved. 4. Low back pain with a T12 compression fracture. She did receive a consultation from Neurosurgery during this hospitalization and a TLSO brace was ordered. It is okay for her to not use it all the t jasper and is there for supportive measures. No further intervention warranted at this time for this co ndition. 5. Low vitamin D level. Calcium and vitamin D have been added to her medication regimen. 6. Leukocytosis in the acute setting of stress. This has resolved. 7. Anemia. She did receive a transfusion during this hospitalization. Her hemoglobin and hematocri t have remained stable. 8. Renal insufficiency. This is close to her baseline. 9. Diabetes mellitus. We will continue her previously prescribed medications. 10. History of coronary artery disease. This appears to be stable with no signs of need for interve ntion or followup at this time. DISPOSITION: The patient will be discharged to rehabilitation center for further strengthening and c onditioning as well as physical therapy and occupational therapy. DISCHARGE MEDICATIONS: Please refer to EMR form. New medications include Lovenox, sliding scale ins ulin, Robaxin, oxycodone IR, MiraLAX. I have not discontinued the patient's previously prescribed [facility] medications to the best of my knowledge. FOLLOW UP: With the patient will be with Dr. Adryan Arauz as well as Dr. Kelvin Mcelroy and Dr. Lenny peres, as well as the patient's primary care physician. There are no pending studies at the time of disposition. I spent greater than 35 minutes in the care , coordination, and management of this patient's discharge. /[id number]/MODL
[2017-05-16] MEDS ORDERED: FUROSEMIDE 20 MG TAB PO SCH (08:00)
[2017-05-16] MEDS ORDERED: SPIRONOLACTONE 25 MG TAB PO SCH (08:00)
== END 2017-05-15 17:04 | DRG 481 ==
LOC: EDUNIT# → EDBD → OBSVTOIN 22:11 → INTOOBSV 22:11 → F3N 05-09 00:52
PROVIDERS: ADMIT Student in an Organized Health Care Education/Training Program; ATTEND Student in an Organized Health Care Education/Training Program
PROC: 0QS604Z Reposition Right Upper Femur with Internal Fixation Device, Open Approach (ICD-10-PCS; principal; 2017-05-09 13:30)
PROC: 30233N1 Transfusion of Nonautologous Red Blood Cells into Peripheral Vein, Percutaneous Approach (ICD-10-PCS; 2017-05-13)
DX: S72.061A Displaced articular fracture of head of right femur, initial encounter for closed fracture (principal); S22.080A Wedge compression fracture of T11-T12 vertebra, initial encounter for closed fracture; D62 Acute posthemorrhagic anemia; R19.00 Intra-abdominal and pelvic swelling, mass and lump, unspecified site; K59.00 Constipation, unspecified; D64.9 Anemia, unspecified; N28.9 Disorder of kidney and ureter, unspecified; E11.9 Type 2 diabetes mellitus without complications; I25.10 Atherosclerotic heart disease of native coronary artery without angina pectoris; I10 Essential (primary) hypertension; W01.0XXA Fall on same level from slipping, tripping and stumbling without subsequent striking against object, initial encounter; Y92.019 Unspecified place in single-family (private) house as the place of occurrence of the external cause
CPT/HCPCS: 96374; 97110-GO; 97116-GP; 97162-GP; 97166-GO; 97530-GP; 97535-GO; C1713; C1769; G8978-GP-CL; G8979-GP-CK; G8987-GO-CL; G8988-GO-CJ; G8988-GO-CK; G8989-GO-CI; J0690; J1170; J1650; J1815; J1940; J2270; J2370; J2405; J2704; J2765; J3010; P9016

== ENCOUNTER → 2017-05-27 | Outpatient (CLI) | payer OTHER, MEDICARE | LOC: BMCIMAGING 16:08 | PROVIDERS: ATTEND Orthopaedic Surgery Hand Surgery | DX: S72.431D Displaced fracture of medial condyle of right femur, subsequent encounter for closed fracture with routine healing (principal) ==

== ENCOUNTER → 2017-07-02 | Outpatient (CLI) | payer MEDICARE, OTHER | LOC: BMCIMAGING 13:48 | PROVIDERS: ATTEND Orthopaedic Surgery Hand Surgery | DX: S72.431D Displaced fracture of medial condyle of right femur, subsequent encounter for closed fracture with routine healing (principal) ==

== ENCOUNTER 2017-07-16 19:00 | Inpatient (IN) | payer OTHER ==
[2017-07-16] MEDS ORDERED: NS 500 ML IV ONE (19:31)
--- NOTE | 2017-07-16 19:57 | EDPHY ---
H & P Time Seen by Provider: 07/16/17 19:25 HPI/ROS: HPI DVT right lower extremity. 76-year-old female by private vehicle. This patient has a history of a right femur fracture which was repaired by Dr. Schaffer in mid April. After rehab she went home in mid May. She had physical therapy come to her house today. The physical therapist noticed that her right lower extremity was significantly swollen. An outpatient ultrasound was obtained. This shows extensive clot through her right lower extremity venous system. Patient denies any shortness of breath or chest pain. Does report feeling some vague discomfort in the right lower extremity and a sensation of warmth in her right lower extremity. ROS: Constitutional: No fever, no chills. No weakness. Eyes: No discharge. No changes in vision. ENT: No sore throat. No nasal congestion or rhinorrhea. Respiratory: No cough. No shortness of breath. Cardiac: No chest pain, no palpitations. Gastrointestinal: No abdominal pain, no vomiting, no diarrhea. Genitourinary: No hematuria. No dysuria or increased frequency with urination. Musculoskeletal: No back pain. No neck pain. As above. Skin: No rashes. Neurological: No headache. No focal weakness or altered sensation. Past medical history: Type 2 diabetes, coronary artery disease with stents, COPD, pulmonary hypertension, sleep apnea. She takes an aspirin daily. Social history: Former smoker. No alcohol. Currently here by herself. Family in the area. Physical Exam: General Appearance: Alert, no distress. This patient is responding to questions appropriately and in full sentences. This patient appears well- hydrated and well-nourished. Eyes: Pupils equal and round no pallor or injection. No lid edema, erythema or injection. Respiratory: There are no retractions, lungs are clear to auscultation with good air movement bilaterally. Cardiovascular: Regular rate and rhythm. No murmur. Neurological: Motor sensory function is grossly intact. Cranial nerves are normal. Gait is normal. Skin: Warm and dry, no rashes. Musculoskeletal: Neck is supple and nontender. Right lower extremity is diffusely swollen relative to the left lower extremity. No significant erythema or warmth. All joints range without pain or impingement. Psychiatric: No agitation. No depression. Database: EKG: EKG time is 8:45 p.m.; EKG shows a narrow complex normal sinus rhythm with a ventricular rate of 68. The KS, QRS, QT intervals are within normal limits. There are no ST-T wave changes indicative of ischemic or injury pattern. No evidence of right heart strain. Interpreted by me. Imaging: Right lower extremity Doppler ultrasound: Extensive right lower extremity DVT extending from the common femoral caudally to the deep veins of the right calf. Study interpreted by staff radiologist Dr. Oli Baez. Procedures: Emergency department course: Vital signs reviewed. She is moderately hypertensive. Vital signs otherwise normal. IV was placed. Appropriate blood work ordered. The patient will be admitted for anticoagulation and consideration of thrombolysis. Hospitalist paged at 8:00 p.m.. 8:15 p.m., spoke with on-call hospitalist Dr. Shirlene Longo. She accepts this patient for admission. Interventional radiology paged to discuss thrombolysis and further management. 8:20 p.m., spoke with on-call interventional radiologist Dr. Jean-Pierre Spann. Case discussed in detail with him. At this time he does not feel the patient is a candidate for thrombolysis. He recommends admission to the hospitalist and starting Lovenox. He will consult on this patient. 8:30 p.m., patient re-evaluated. She will be given Lovenox per dosing protocol. She will be admitted to the hospitalist service. Plan of management discussed with her. All of her questions were answered. She was admitted in stable condition. Differential Diagnosis: The differential diagnosis on this patient includes but is not limited to right lower extremity DVT. PE, lower extremity cellulitis, CHF unlikely. This represents a partial list of diagnoses considered. These considerations are based on history, physical exam, past history, reassessment and diagnostic testing. Smoking Status: Former smoker Constitutional: Initial Vital Signs Temperature (C) 36.7 C 07/16/17 19:07 Heart Rate 81 07/16/17 19:07 Respiratory Rate 16 07/16/17 19:07 Blood Pressure 140/64 H 07/16/17 19:07 O2 Sat (%) 96 07/16/17 19:07 O2 Delivery Mode Room Air Allergies/Adverse Reactions: enalapril maleate [From Vasotec] Allergy (Intermediate, Verified 07/16/17 19:02) enalaprilat dihydrate [From Vasotec] Allergy (Verified 07/16/17 19:02) Sulfa (Sulfonamide Antibiotics) Allergy (Verified 07/16/17 19:02) enalapril maleate Allergy (Unknown, Uncoded 05/30/17 10:28) enalaprilat dihydrate Allergy (Unknown, Uncoded 05/30/17 10:28) Home Medications: Medication Instructions Recorded Furosemide [Lasix 20 MG (*)] 20 mg PO DAILY PRN 03/29/12 Levothyroxine [Synthroid 75 mcg 75 mcg PO MOTUWETHFRSA@06 03/29/12 (*)] Simvastatin [Zocor 40 mg] 40 mg PO HS 03/29/12 Spironolactone [Aldactone 25 MG 25 mg PO DAILY PRN 03/29/12 (*)] metFORMIN HCL [Glucophage 500 mg 500 mg PO BIDMEAL 03/29/12 (*)] Calcium Carbonate [Tums 500MG (*)] 500 - 1,000 mg PO Q4 PRN 01/14/16 Insulin Glargine [Lantus 100 0 units SC DAILY 01/14/16 UNITS/ML (*)] Acetaminophen [Tylenol ES 500 mg 1,000 mg PO TID tab 05/15/17 (*)] Cholecalciferol Vit D3 [Vitamin D3 1,000 units PO DAILY tab 05/15/17 (*)] Aspirin EC [Aspirin EC 81 mg (*)] 81 mg PO DAILY 07/16/17 Polyethylene Glycol 3350 [Miralax 17 gm PO BID PRN 07/16/17 17 gm (*)] Ranitidine HCl [Zantac] 150 mg PO BID 07/16/17 Medical Decision Making - Data Points Laboratory Results: Laboratory Results 07/16/17 20:00 07/16/17 20:00 07/16/17 07/16/17 07/16/17 20:00 20:00 20:00 WBC 8.68 10^3/uL 10^3/uL (3.80-9.50) RBC 4.12 10^6/uL L 10^6/uL (4.18-5.33) Hgb 12.5 g/dL L g/dL (12.6-16.3) Hct 37.8 % L % (38.0-47.0) MCV 91.7 fL fL (81.5-99.8) MCH 30.3 pg pg (27.9-34.1) MCHC 33.1 g/dL g/dL (32.4-36.7) RDW 14.8 % % (11.5-15.2) Plt Count 264 10^3/uL 10^3/uL (150-400) MPV 11.4 fL fL (8.7-11.7) Neut % (Auto) 54.1 % % (39.3-74.2) Lymph % (Auto) 29.5 % % (15.0-45.0) [place] % (Auto) 9.2 % % (4.5-13.0) Eos % (Auto) 6.1 % % (0.6-7.6) Baso % (Auto) 0.8 % % (0.3-1.7) Nucleat RBC Rel Count 0.0 % % (0.0-0.2) Absolute Neuts (auto) 4.69 10^3/uL 10^3/uL (1.70-6.50) Absolute Lymphs (auto) 2.56 10^3/uL 10^3/uL (1.00-3.00) Absolute Monos (auto) 0.80 10^3/uL 10^3/uL (0.30-0.80) Absolute Eos (auto) 0.53 10^3/uL H 10^3/uL (0.03-0.40) Absolute Basos (auto) 0.07 10^3/uL 10^3/uL (0.02-0.10) Absolute Nucleated RBC 0.00 10^3/uL 10^3/uL (0-0.01) Immature Gran % 0.3 % % (0.0-1.1) Immature Gran # 0.03 10^3/uL 10^3/uL (0.00-0.10) PT 12.5 SEC SEC (12.0-15.0) INR 0.91 (0.83-1.16) APTT 33.3 SEC SEC (23.0-38.0) Sodium 141 mEq/L mEq/L (135-145) Potassium 4.2 mEq/L mEq/L (3.3-5.0) Chloride 106 mEq/L mEq/L (97-110) Carbon Dioxide 23 mEq/l mEq/l (22-31) Anion Gap 12 mEq/L mEq/L (8-16) BUN 13 mg/dL mg/dL (7-23) Creatinine 0.9 mg/dL mg/dL (0.6-1.0) Estimated GFR > 60 Glucose 172 mg/dL H mg/dL (70-100) Calcium 8.9 mg/dL mg/dL (8.5-10.4) Medications Given: Discontinued Medications Enoxaparin Sodium (Lovenox) 70 mg SC EDNOW ONE Stop: 07/16/17 20:46 Last Admin: 07/16/17 21:00 Dose: 70 mg Sodium Chloride (Ns) 500 mls @ 1,000 mls/hr IV EDNOW ONE PRN Reason: Protocol Stop: 07/16/17 20:00 Last Admin: 07/16/17 19:54 Dose: 500 mls Departure - Departure Disposition: [facility] Inpatient Acute Clinical Impression: Right leg DVT
[2017-07-16] MEDS ORDERED: ENOXAPARIN 60 MG/0.6 ML SYR SC ONE (20:25)
[2017-07-16 20:26] LABS: PLATELET COUNT 264 10^3/uL (150-400)
[2017-07-16 20:35] LABS: INR 0.91 (0.83-1.16); PROTIME(PATIENT) 12.5 SEC (12.0-15.0)
[2017-07-16] MEDS ORDERED: ENOXAPARIN 80 MG/0.8 ML SYR SC ONE (20:45)
--- NOTE | 2017-07-16 20:47 | CPEKG ---
Heart Rate: 68 RR Interval: 882 P-R Interval: 180 QRSD Interval: 62 QT Interval: 408 QTC Interval: 434 P Foster: 46 QRS Foster: 39 T Wave Foster: 17 EKG Severity - NORMAL ECG - EKG Impression: SINUS RHYTHM EKG Impression: NON SPECIFIC ST/T WAVE CHANGES NOTED ON PRIOR ECG ARE LESS PRONOUNCED Electronically Signed By: Manuel Quinonez 23-Jul-2017 20:52:19
[2017-07-16] MEDS ORDERED: SPIRONOLACTONE 25 MG TAB PO PRN (21:34)
[2017-07-16] MEDS ORDERED: POLYETHYLENE GLYCOL 3350 17 GM PKT PO PRN (21:34)
--- NOTE | 2017-07-16 22:28 | GHP ---
[f rep st] HISTORY AND PHYSICAL DATE OF ADMISSION: 07/16/2017 CHIEF COMPLAINT: Right leg swelling. HISTORY: The patient is a 76-year-old female, who had a femur fracture on May 09 and underwent KEIRY F with Dr. Schaffer. She has noticed increased right lower extremity swelling for the last 2 days. She h ad an outpatient ultrasound that showed a very large DVT, and she was referred to the emergency room. She denies any chest pain or shortness of breath. She has had a very slow recovery from this surgery. She also complains of abdominal distention over the last couple of months with decreased p.o. intake. She eats only 2 bites of food, and then, she h as to stop because she is full. She does not know if she has lost weight because she wears very loos e clothing. She denies significant constipation. PAST MEDICAL HISTORY: 1. Pelvic/uterine mass diagnosed at the time of her femur fracture. Recommended for outpatient foll owup; however, she has not done this. 2. Compression fracture. 3. Diabetes. 4. Spinal stenosis. 5. Coronary artery disease, status post stents. MEDICATIONS: Please see computer record for full details. ALLERGIES: Enalapril. SOCIAL HISTORY: Quit smoking in 1985. Occasional alcohol. She lives alone. REVIEW OF SYSTEMS: Complete review of systems obtained. Review of systems negative regarding consti tutional, HEENT, GI, pulmonary, cardiovascular, , hematology, musculoskeletal, endocrine, psych exc ept for positives and negatives as noted in HPI. FAMILY HISTORY: Reviewed and noncontributory to presenting complaint. PHYSICAL EXAMINATION: GENERAL: Well-developed, well-nourished female in no acute distress. VITAL S IGNS: Temperature is 36.7, pulse 78, blood pressure 161/65, satting 97% on room air. EYES: Normal conjunctivae. Pupils reactive to light. ENT: Normal. EARS AND NOSE: Hearing intact. Normal lips and teeth. Oropharynx moist. NECK: Trachea midline. No thyromegaly. CHEST: Normal respiratory effort. Lungs clear to auscultation bilaterally. CARDIOVASCULAR: Regular rate and rhythm. No murm ur. 1+ right lower extremity edema. ABDOMEN: Soft, nontender. No hepatosplenomegaly. Positive di stention. SKIN: Warm, dry, intact without rash. MUSCULOSKELETAL: No cyanosis or clubbing. Streng th 5/5 upper and lower extremities. NEURO: Cranial nerves intact. Normal sensation to light touch. PSYCH: Alert and oriented x3. Normal mood and affect. Normal judgment and insight. Normal memor y. LABS: White count 8.68, hematocrit 37.8, platelets 264. Sodium 141, potassium 4.2, chloride 106, bi carb 23, BUN 13, creatinine 0.7, glucose 152. Ultrasound shows a very large DVT in her right lower e xtremity all way from the common femoral vein down to her calf. This case was discussed with Dr. Thayer. He is consulted in Interventional Radiology. They did not think she was a lytics candidate at this time and recommended Lovenox. ASSESSMENT/PLAN: 1. Extensive deep venous thrombosis. Lytics have been considered. Interventional Radiology reviewe d the case and did not think lytics would benefit her at this time. She does have a massive deep pramod ous thrombosis, however. So, I do think bringing her in for observation is prudent. We will continu e subcutaneous Lovenox. The patient desires a novel oral anticoagulant agent at discharge. I am ner vous about switching her onto an agent such as Eliquis until we get a couple of days of subcu Lovenox under our belt. She could potentially go home on subcu Lovenox, but she lives alone and is extremel y anxious regarding the massive nature of this clot. I think a few days of inpatient observation on subcu Lovenox prior to transition to an oral agent is prudent. She does not currently have any signs of pulmonary embolus, but given the massive nature of her deep venous thrombosis, we will check a maurice gonzalez EKG, chest x-ray, and watch on telemetry. 2. Uterine mass. I query if this may be contributing to her massive deep venous thrombosis. The juana alcaraz has refused further workup. I am also concerned because she has had decreased p.o. intake for the last couple of months with increasing abdominal distention. I will start with an abdominal x-ray to rule out obstruction. 3. Diabetes. Continue her insulin and metformin. 4. Coronary artery disease, status post stents. This appears stable. CODE STATUS: Full. ADMISSION STATUS: We will admit to inpatient. As discussed above, I think this massive DVT does war rant close monitoring. DVT PROPHYLAXIS: Anticoagulation management as above. /[id number]/MODL
[2017-07-16] MEDS: ACETAMINOPHEN 500 MG TAB PO SCH (22:34)
[2017-07-16] MEDS: metFORMIN HCL 500 MG TAB PO SCH (22:35)
[2017-07-17] MEDS: CALCIUM CARBONATE 500 MG CHEWABLE TAB PO PRN ×2 (05:28→14:00)
[2017-07-17] MEDS: LEVOTHYROXINE 75 MCG TAB PO SCH (05:28)
[2017-07-17] MEDS ORDERED: metFORMIN HCL 500 MG TAB PO SCH (08:00)
[2017-07-17] MEDS: ACETAMINOPHEN 500 MG TAB PO SCH ×3 (08:22→22:40)
[2017-07-17] MEDS: metFORMIN HCL 500 MG TAB PO SCH ×2 (08:33→18:19)
[2017-07-17] MEDS: FAMOTIDINE 20 MG TAB PO SCH ×2 (08:34→19:14)
[2017-07-17] MEDS: CHOLECALCIFEROL VIT D3 1,000 UNITS TAB PO SCH (08:34)
[2017-07-17] MEDS: ASPIRIN EC 81 MG TAB PO SCH (08:35)
[2017-07-17] MEDS: ENOXAPARIN 60 MG/0.6 ML SYR SC SCH ×2 (08:37→21:09)
[2017-07-17] MEDS: INSULIN GLARGINE 100 UNITS/ML UNIT SC SCH (08:37)
--- NOTE | 2017-07-17 08:56 | ASMTCMCOM ---
CM Note CM Note Notes: Chart reviewed. 76 year old female admitted via ED after her [facility] provider noticed right lower extremity edema. She has been diagnosed with large DVT. Not a candidate for lytic therapy. Inpatient for lovenox. CM to find out her [facility] company and make appropriate referral. CM to follow. Plan: TBD Date Signed: 07/17/2017 08:56 AM Electronically Signed By:Leena Haile RN
--- NOTE | 2017-07-17 08:58 | PDMN ---
Medical Necessity Medical necessity: Pt meets IP criteria per MD; est los >2 mn for eval/tx of massive DVT & concerning uterine mass w/decreased p.o. intake & increasing abdominal distension; admit for further workup/close monitoring, med management & therapies; hx recent femur fx s/p ORIF, CAD s/p stents, diabetes, spinal stenosis, compression fx; per H&P & order 07/16/17
--- NOTE | 2017-07-17 09:05 | HOSPPROG ---
Hospitalist Progress Note Assessment/Plan: Patient is a 76-year-old female who had a femur fracture on May 09 and underwent an ORIF with Dr. Schaffer. She noted that her leg had significant swelling for the past 2 days. She had an outpatient ultrasound that showed a very large DVT and she was referred to the emergency room. Today is my 1st encounter with the patient. Chart reviewed. * extensive DVT -are I reviewed her case and did not think she would benefit at this time -started off on subcutaneous Lovenox twice daily -think she will need several days of treatment prior to switching her to an oral agent * uterine mass -concern that this could be contributing to her DVT she has read decline further workup * diabetes * coronary artery disease -status post stent *recent ORIF w Dr Schaffer -reviewed her care with her PCP Dr Dorman who spoke w orthopedics; recommendation is NWB to right lower ext for 2 more weeks due to poor healing *stressors -has some issues with family, paying her mortgage, etc. Spoke w CM *Plan: spoke w CM to evaluate one of the OAC to treat her DVT, she does not want to take coumadin and it would be difficult for her to get INR's followed. CM will see which one is covered. Subjective: Alex is not c/o any pain but is very concerned about getting home to take care of personal things. Objective: Vital Signs Temp Pulse Resp BP Pulse Ox 36.5 C 75 16 142/69 H 97 07/17/17 07:29 07/17/17 07:29 07/17/17 07:29 07/17/17 07:29 07/17/17 07:29 07/16/17 07/17/17 07/18/17 05:59 05:59 05:59 Intake Total 900 Balance 900 PT 12.5 SEC (12.0-15.0) 07/16/17 20:00 INR 0.91 (0.83-1.16) 07/16/17 20:00 - Physical Exam Constitutional: appears nourished, uncomfortable Eyes: PERRL Ears, Nose, Mouth, Throat: hearing normal Cardiovascular: regular rate and rhythym, edema (right calf slightly larger than left) Respiratory: no respiratory distress Gastrointestinal: normoactive bowel sounds Skin: warm Musculoskeletal: full muscle strength Neurologic: AAOx3 Psychiatric: interacting appropriately, thought process linear, anxious ICD10 Worksheet Patient Problems: Problems Problem Status Onset Right leg DVT Acute Fracture of proximal end of femur Active Fracture of distal femur Acute T12 compression fracture Acute UTI (urinary tract infection) Acute Vertigo Acute Vomiting Acute
--- NOTE | 2017-07-17 09:43 | CPEKG ---
Heart Rate: 70 RR Interval: 857 P-R Interval: 172 QRSD Interval: 62 QT Interval: 388 QTC Interval: 419 P Forreston: 50 QRS Forreston: 7 T Wave Forreston: 23 EKG Severity - BORDERLINE ECG - EKG Impression: SINUS RHYTHM EKG Impression: BORDERLINE T ABNORMALITIES, ANTERIOR LEADS Electronically Signed By: Manuel Quinonez 23-Jul-2017 20:52:25
[2017-07-17] MEDS: ATORVASTATIN CALCIUM 20 MG TAB PO SCH (21:09)
[2017-07-18] MEDS: LEVOTHYROXINE 75 MCG TAB PO SCH (05:29)
[2017-07-18] MEDS: CHOLECALCIFEROL VIT D3 1,000 UNITS TAB PO SCH (08:12)
[2017-07-18] MEDS: ACETAMINOPHEN 500 MG TAB PO SCH ×2 (08:12→15:46)
[2017-07-18] MEDS: metFORMIN HCL 500 MG TAB PO SCH ×2 (08:12→17:30)
[2017-07-18] MEDS: FAMOTIDINE 20 MG TAB PO SCH ×2 (08:12→21:23)
[2017-07-18] MEDS: ASPIRIN EC 81 MG TAB PO SCH (08:12)
[2017-07-18] MEDS: INSULIN GLARGINE 100 UNITS/ML UNIT SC SCH (08:13)
[2017-07-18] MEDS: ENOXAPARIN 60 MG/0.6 ML SYR SC SCH (08:14)
--- NOTE | 2017-07-18 09:51 | HOSPPROG ---
Hospitalist Progress Note Assessment/Plan: Patient is a 76-year-old female who had a femur fracture on May 09 and underwent an ORIF with Dr. Schaffer. She noted that her leg had significant swelling for the past 2 days. She had an outpatient ultrasound that showed a very large DVT and she was referred to the emergency room. * extensive DVT -start Jennifer galindo -started off on subcutaneous Lovenox twice daily * uterine mass -concern that this could be contributing to her DVT she has read decline further workup -She thought this had resolved; reviewed w her the MRI and abdominal ultrasound on previous admission, it is still present * diabetes -hyperglycemia on admit * coronary artery disease -status post stent *recent ORIF w Dr Schaffer -reviewed her care with her PCP Dr Dorman who spoke w orthopedics; recommendation is NWB to right lower ext for 2 more weeks due to poor healing *stressors -has some issues with family, paying her mortgage, etc. Spoke w CM *Plan: script for Jennifer sent to [facility]' here, she is willing to have home care PT and OT. Will plan on dc tomorrow morning if stable. Subjective: Alex has no complaints. Wants only to go home. Objective: Vital Signs Temp Pulse Resp BP Pulse Ox 36.3 C 66 18 116/59 L 97 07/18/17 07:38 07/18/17 07:38 07/18/17 07:38 07/18/17 07:38 07/18/17 07:38 07/17/17 07/18/17 07/19/17 05:59 05:59 05:59 Intake Total 900 600 Balance 900 600 PT 12.5 SEC (12.0-15.0) 07/16/17 20:00 INR 0.91 (0.83-1.16) 07/16/17 20:00 - Physical Exam Constitutional: no apparent distress, appears nourished, not in pain, chronically ill appearing Eyes: PERRL Ears, Nose, Mouth, Throat: hearing normal Respiratory: no respiratory distress Skin: warm Musculoskeletal: generalized weakness Neurologic: AAOx3 Psychiatric: interacting appropriately, not anxious, not encephalopathic, thought process linear ICD10 Worksheet Patient Problems: Problems Problem Status Onset Right leg DVT Acute Fracture of proximal end of femur Active Fracture of distal femur Acute T12 compression fracture Acute UTI (urinary tract infection) Acute Vertigo Acute Vomiting Acute
--- NOTE | 2017-07-18 10:13 | ASMTCMCOM ---
CM Note CM Note Notes: Patient case reviewed with [facility] medicine. To dc tomorrow. Needs [facility] PT/OT referrals placed in allscripts. Will dc on eliquis for DVT. CM to follow. Plan: Home with [facility] services. Date Signed: 07/18/2017 10:13 AM Electronically Signed By:Leena Haile RN
--- NOTE | 2017-07-18 13:02 | ASMTCMCOM ---
CM Note CM Note Notes: Chart reviewed. Met with patient who is a very pleasant 76 year old with a DVT to her right lower leg. Though a SNF is recommended, patient prefers to go home with [facility]. Katia Cannon has ordered her [facility] and [facility] pharmacy states her copay would be 37.00 at this point. The patient tells me she has a friend and a 16 year old helping her. She is non weight bearing. she tells me she is able to meet her care needs at present. Plan will be home with home health care and [facility] is agreeable. CM to follow. Plan: Home with [facility]. Date Signed: 07/18/2017 01:01 PM Electronically Signed By:Leena Haile RN
--- NOTE | 2017-07-18 13:22 | SOAPPROG ---
[facility] Progress Note Assessment/Plan: Assessment: 2.5 mo s/p R distal femur ORIF, admitted for extensive RLE DVT -receiving lovenox, will be d/c'd tmrw on eliquis Plan: -appreciate care of hospitalist team in treatment of DVT -she will be NWB for another 2 wks on the R leg as part of standard 3mo NWB for intra-artic distal femur fx -she has an appt with me on 07/30 -encourage ROM of the R knee 07/18/17 13:19 Subjective: Doing well this afternoon. Anxious about going home tmrw. The R thigh and knee feels good. Not much pain. Objective: Vital Signs Temp Pulse Resp BP Pulse Ox 36.4 C 67 14 139/58 H 95 07/18/17 12:00 07/18/17 12:00 07/18/17 12:00 07/18/17 12:00 07/18/17 12:00 07/17/17 07/18/17 07/19/17 05:59 05:59 05:59 Intake Total 900 600 250 Balance 900 600 250 PT 12.5 SEC (12.0-15.0) 07/16/17 20:00 INR 0.91 (0.83-1.16) 07/16/17 20:00 R leg -mild edema R calf -incision well healed -knee ROM 0-75 ICD10 Worksheet Patient Problems: Problems Problem Status Onset Right leg DVT Acute Fracture of proximal end of femur Active Fracture of distal femur Acute T12 compression fracture Acute UTI (urinary tract infection) Acute Vertigo Acute Vomiting Acute
--- NOTE | 2017-07-18 13:46 | ASMTCMCOM ---
CM Note CM Note Notes: Patient recieved her Eliquis from [facility]. Reviewed instructions with her. To likely dc to home tomorrow. [facility] C in place. Patient requests that Christina BRAGA not be assigned to her. [facility] aware. Date Signed: 07/18/2017 01:45 PM Electronically Signed By:Leena Haile RN
[2017-07-18] MEDS: ATORVASTATIN CALCIUM 20 MG TAB PO SCH (21:22)
[2017-07-18] MEDS: APIXABAN 5 MG TAB PO SCH (21:23)
[2017-07-19] MEDS: ACETAMINOPHEN 500 MG TAB PO SCH ×2 (04:18→07:17)
[2017-07-19] MEDS: LEVOTHYROXINE 75 MCG TAB PO SCH (05:05)
[2017-07-19] MEDS: metFORMIN HCL 500 MG TAB PO SCH (07:14)
[2017-07-19] MEDS: INSULIN GLARGINE 100 UNITS/ML UNIT SC SCH (07:18)
[2017-07-19] MEDS: APIXABAN 5 MG TAB PO SCH (08:45)
[2017-07-19] MEDS: FAMOTIDINE 20 MG TAB PO SCH (08:45)
[2017-07-19] MEDS: ASPIRIN EC 81 MG TAB PO SCH (08:45)
[2017-07-19] MEDS: CHOLECALCIFEROL VIT D3 1,000 UNITS TAB PO SCH (08:45)
--- NOTE | 2017-07-19 08:50 | HOSPPROG ---
Hospitalist Progress Note Assessment/Plan: Patient is a 76-year-old female who had a femur fracture on May 09 and underwent an ORIF with Dr. Schaffer. She noted that her leg had significant swelling for the past 2 days. She had an outpatient ultrasound that showed a very large DVT and she was referred to the emergency room. * extensive DVT - Eliquis -started off on subcutaneous Lovenox twice daily * uterine mass -concern that this could be contributing to her DVT she has read decline further workup -She thought this had resolved; reviewed w her the MRI and abdominal ultrasound on previous admission, it is still present -she is going to get further evaluation * diabetes -hyperglycemia on admit * coronary artery disease -status post stent *recent ORIF w Dr Schaffer -reviewed her care with her PCP Dr Dorman who spoke w orthopedics; recommendation is NWB to right lower ext for 2 more weeks due to poor healing -appreciate Dr Schaffer seeing Alex yesterday *stressors -has some issues with family, paying her mortgage, etc. Spoke w CM *HLD -recommending she increase her dose of statin, she is agreeable to this *Plan: dc home w home care/ close f/u with Dr Dorman and Dr Schaffer Subjective: Alex is feeling well, anxious to go home. Objective: Vital Signs Temp Pulse Resp BP Pulse Ox 36.8 C 85 18 145/55 H 96 07/19/17 07:23 07/19/17 07:23 07/19/17 07:23 07/19/17 07:23 07/19/17 07:23 07/18/17 07/19/17 07/20/17 05:59 05:59 05:59 Intake Total 600 250 Balance 600 250 PT 12.5 SEC (12.0-15.0) 07/16/17 20:00 INR 0.91 (0.83-1.16) 07/16/17 20:00 - Physical Exam Constitutional: no apparent distress, appears nourished, not in pain Eyes: PERRL Respiratory: no respiratory distress Gastrointestinal: normoactive bowel sounds Skin: warm Musculoskeletal: generalized weakness Neurologic: AAOx3 Psychiatric: interacting appropriately ICD10 Worksheet Patient Problems: Problems Problem Status Onset Right leg DVT Acute Fracture of proximal end of femur Active Fracture of distal femur Acute T12 compression fracture Acute UTI (urinary tract infection) Acute Vertigo Acute Vomiting Acute
[2017-07-19] MEDS ORDERED: PNEUMOC 13-VAL CONJ-DIP CRM/PF 0.5 ML SYR IM ONE (11:18)
[2017-07-19 11:34] VITALS: BP 164/65
--- NOTE | 2017-07-19 12:38 | ASMTLACE ---
LACE Length of stay for Answers: 2 days current admission Acuity / Level of Answers: Yes Care: Did the patient have an inpatient admission? Comorbidities - select Answers: Coronary Artery Disease all that apply Diabetes (uncontrolled or controlled) Other Notes: Femur fracture with DVT # of Emergency department Answers: 1-2 visits in the last 6 months Score: 10 Date Signed: 07/19/2017 12:37 PM Electronically Signed By:Yanelis Landeros RN
--- NOTE | 2017-07-19 13:18 | PDIAF ---
- Diagnosis Diagnosis: extensive DVT Code Status: Full Code - Medication Management Discharge Medications: Medications to Continue on Transfer Furosemide [Lasix 20 MG (*)] 20 mg PO DAILY PRN 03/29/12 [Last Taken 07/13/17] Levothyroxine [Synthroid 75 mcg (*)] 75 mcg PO MOTUWETHFRSA@06 03/29/12 [Last Taken 07/16/17] Simvastatin [Zocor 40 mg] 40 mg PO HS 03/29/12 [Last Taken 1 Month Ago ~06/15/17 ] Spironolactone [Aldactone 25 MG (*)] 25 mg PO DAILY PRN 03/29/12 [Last Taken 04/27] metFORMIN HCL [Glucophage 500 mg (*)] 500 mg PO BIDMEAL 03/29/12 [Last Taken 07/28 09:00] Calcium Carbonate [Tums 500MG (*)] 500 - 1,000 mg PO Q4 PRN 01/14/16 [Last Taken 07/15/17] Insulin Glargine [Lantus 100 UNITS/ML (*)] 0 units SC DAILY 01/14/16 [Last Taken 07/16/17] Acetaminophen [Tylenol ES 500 mg (*)] 1,000 mg PO TID tab 05/15/17 [Last Taken 07/16/17 12:00] Cholecalciferol Vit D3 [Vitamin D3 (*)] 1,000 units PO DAILY tab 05/15/17 [ Last Taken 1 Week Ago ~07/09/17] Aspirin EC [Aspirin EC 81 mg (*)] 81 mg PO DAILY 07/16/17 [Last Taken 07/16/17] Polyethylene Glycol 3350 [Miralax 17 gm (*)] 17 gm PO BID PRN 07/16/17 [Last Taken 1 Month Ago ~06/15/17] Ranitidine HCl [Zantac] 150 mg PO BID 07/16/17 [Last Taken 07/16/17 09:00] Apixaban [Eliquis] 10 mg PO BID #60 tab 07/18/17 [Last Taken Unknown] Discharge Medications: Refer to the Discharge Home Medication list for PRN reason. - Orders Services needed: Home Care, Certified [employer], Physical Therapy, Occupational Therapy Home Care Face to Face: I certify that this patient was under my care and that I had the required [id number] encounter meeting the encounter requirements on the discharge day. My findings support the fact that the patient is homebound as defined in Home Care Face to Face Continued: CMS Chapter 7 Medicare Benefits Manual 30.1.1 , The condition of the patient is such that there exists a normal inability to leave home and consequently, leaving home would require a considerable and taxing effort. Diet Recommendation: no restrictions on diet Diet Texture: Regular Texture Diet Additional Instructions: F/u with Dr. Schaffer as scheduled on 07/30 NWB R leg, encourage ROM R knee take Eliquis as instructed, 10 mg twice a day for 6 more days including counting today, then decrease to 5 mg twice a day Talk w Dr Dorman about duration of this medication, but you definitely need to be on this for 3 months; be sure to get a refill prior to this running out Talk with Dr Dorman about statin therapy, LDL and Triglycerides are high Take good care of yourself, hope you write your book - Follow Up Care Current Providers and Referrals: Ronel Dorman DO [Primary Care Provider] - As per Instructions Lenny Schaffer MD [Medical Doctor] -
--- NOTE | 2017-07-19 19:23 | GDS ---
[f rep st] DISCHARGE SUMMARY DISCHARGE DIAGNOSES: 1. Extensive deep vein thrombosis. 2. Uterine mass. 3. Diabetes. 4. Coronary artery disease. 5. Femur fracture with recent open reduction internal fixation with Dr. Schaffer. 6. Home stressors. 7. Hyperlipidemia. HISTORY OF PRESENT ILLNESS: Briefly, the patient is a 76-year-old female with femur fracture on May 09 and underwent ORIF with Dr. Schaffer. She went to Rehab and then went home. She notes that her leg had significant swelling. She had an outpatient ultrasound that showed an extensive DVT and was referred to the emergency room. HOSPITAL COURSE: 1. Extensive DVT. She was initially treated with Lovenox subcutaneous. Now on Eliquis. I have recommended that she stay on this for a minimum of 3 months , and then further discuss with her primary care provider. I have spoken to her PCP, Dr. Dorman. 2. Uterine mass. The patient thought that this was gone. I reviewed with her on her previous records that she does indeed have a mass that needs further evaluation. She will follow up with her PCP in regard to this. 3. Diabetes, stable. 4. Coronary artery disease, status post stent. 5. Femur fracture, status post ORIF. She will follow up with Dr. Schaffer in 2 weeks. His recommendation is no weightbearing on the right leg. 6. Home stressors. She has had issues with paying her mortgage and family issues, feels that this is under better control. 7. Hyperlipidemia. Her LDL is elevated as well as her triglycerides. She is going to talk to Dr. Dorman about increasing her statin dosing. DISCHARGE CONDITION: Stable. VITAL SIGNS: Blood pressure is 145/55, heart rate of 85, respiratory rate of 18 , O2 saturation on room air 96%, temperature is 36.8 Celsius. MEDICATIONS AT DISCHARGE: Please see the EMR. DISCHARGE INSTRUCTIONS: 1. To follow up with Dr. Schaffer in 2 weeks. 2. To continue oral anticoagulation, to not stop it suddenly. 3. To get further evaluation in regard to her medications for her hyperlipidemia. Greater than 30 minutes discharging and coordinating the patient's care. /[id number]/MODL MTDD
== END 2017-07-19 12:00 | disposition home or self-care (01) | DRG 301 ==
LOC: F3E 21:45 → UNDODISIN 07-19 12:44
PROVIDERS: ADMIT Internal Medicine; ATTEND Internal Medicine
DX: I82.4Z1 Acute embolism and thrombosis of unspecified deep veins of right distal lower extremity (principal); R19.09 Other intra-abdominal and pelvic swelling, mass and lump; E11.9 Type 2 diabetes mellitus without complications; I25.10 Atherosclerotic heart disease of native coronary artery without angina pectoris; E78.5 Hyperlipidemia, unspecified; S72.91XD Unspecified fracture of right femur, subsequent encounter for closed fracture with routine healing; Z98.890 Other specified postprocedural states
CPT/HCPCS: 97161-GP; 97165-GO; G0009; G8978-GP-CJ; G8979-GP-CI; G8987-GO-CJ; G8988-GO-CJ; G8989-GO-CJ; J1650; J1815

== ENCOUNTER → 2017-07-16 | Outpatient (CLI) | payer OTHER | LOC: BMCIMAGING 15:29 | PROVIDERS: ATTEND Orthopaedic Surgery Hand Surgery | DX: I82.4Z1 Acute embolism and thrombosis of unspecified deep veins of right distal lower extremity (principal) ==

== ENCOUNTER → 2017-07-30 | Outpatient (CLI) | payer OTHER | LOC: BMCIMAGING 14:34 | PROVIDERS: ATTEND Orthopaedic Surgery Hand Surgery | DX: S72.491D Other fracture of lower end of right femur, subsequent encounter for closed fracture with routine healing (principal) ==

== ENCOUNTER → 2017-10-29 | Outpatient (CLI) | payer OTHER | LOC: BMCIMAGING 13:13 | PROVIDERS: ATTEND Orthopaedic Surgery Hand Surgery | DX: S72.491D Other fracture of lower end of right femur, subsequent encounter for closed fracture with routine healing (principal) ==

== ENCOUNTER 2018-04-23 00:17 | Inpatient (IN) | payer OTHER, MEDICARE ==
[2018-04-23] MEDS ORDERED: NS 1,000 ML IV ONE ×2 (00:28→01:09)
--- NOTE | 2018-04-23 00:29 | EDPHY ---
H & P Stated Complaint: LLQ pain since 2199, N/V Time Seen by Provider: 04/23/18 00:29 HPI/ROS: HPI CHIEF COMPLAINT: Abdominal pain. HISTORY OF PRESENT ILLNESS: Patient is a 77-year-old female, she has a history of hypertension, coronary artery disease with 2 stents, thyroid disease, diabetes, presents emergency room with left lower quadrant abdominal pain with associated nausea vomiting. Patient states earlier this evening she developed multiple bowel movements she denies any diarrhea but multiple soft bowel movements developed some left lower quadrant abdominal pain and nausea. Vomited 1 time. Denies any chest pain or shortness of breath, denies fever. Decided call 911 due to ongoing left lower quadrant abdominal pain. Currently . Was 10/20 received 4 mg IV morphine prior to arrival by EMS. Past Medical History: Hypertension, hyperlipidemia, coronary artery disease with 2 stents, thyroid disease Past Surgical History: Denies recent surgery Social History: Denies drugs alcohol tobacco. Lives independently private residence. Family History: Noncontributory ROS REVIEW OF SYSTEMS: 10 Systems were reviewed and negative with the exception of the elements mentioned in the history of present illness. Exam Constitutional triage nursing summary reviewed, vital signs reviewed, awake/ alert. Eyes normal conjunctivae and sclera, EOMI, PERRLA. HENT normal inspection, atraumatic, moist mucus membranes, no epistaxis, neck supple/ no meningismus, no raccoon eyes. Respiratory clear to auscultation bilaterally, normal breath sounds, no respiratory distress, no wheezing. Cardiovascular rate normal, regular rhythm, no murmur, no edema, distal pulses normal. Gastrointestinal mild tender palpation left lower quadrant, no peritoneal signs no rebound, no guarding, normal bowel sounds, no distension, no pulsatile mass. Genitourinary no CVA tenderness. Musculoskeletal no midline vertebral tenderness, full range of motion, no calf swelling, no tenderness of extremities, no meningismus, good pulses, neurovascularly intact. Skin pink, warm, & dry, no rash, skin atraumatic. Neurologic awake, alert and oriented x 3, AAOx3, moves all 4 extremities equally, motor intact, sensory intact, CN II-XII intact, normal cerebellar, normal vision, normal speech. Psychiatric normal mood/affect. Heme/Lymph/Immune no lymphadenopathy. Differential Diagnosis: Differential diagnosis includes but is not limited to and in no particular order: Bowel obstruction, appendicitis, gallbladder disease, diverticulitis, colitis, enteritis, perforated viscus, gastritis, GERD , esophagitis, urinary tract infection, pyelonephritis, kidney stones Medical Decision Making: Plan for this patient IV establishment IV fluid bolus , basic labs, lactic acid, urinalysis, CT scan abdomen pelvis with IV contrast. Re-evaluation: CT abdomen pelvis with IV contrast faxed to me by direct Radiology at time 1:53 a.m., This shows a 2.5 mm calculus at the left UVJ resulting and upstream hydroureter hydronephrosis findings consistent with obstructive uropathy. Additionally the patient has a small hiatal hernia. Mild diffuse fatty infiltration of the liver. The uterus is abnormally enlarged and masslike for the age pelvic MRI or ultrasound recommend for further evaluation diverticulosis and endplate compression deformity at T11-T12. Patient continues to have 4/10 left flank pain. Given her ongoing pain should be admitted to the hospital. The patient agrees for this plan. Additionally I consult the hospitalist service Dr. Buck agrees to admit. Source: Patient - Personal History Current Tetanus/Diphtheria Vaccine: Yes - Medical/Surgical History Hx Asthma: No Hx Chronic Respiratory Disease: Yes Hx Diabetes: Yes Hx Cardiac Disease: Yes Hx Renal Disease: No Hx Cirrhosis: No Hx Alcoholism: No Hx HIV/AIDS: No Hx Splenectomy or Spleen Trauma: No Other PMH: DM type2 , CAD 2 stents , COPD chronic bronchitis , pulm htn, fx femur r leg - orif, sleep apnea, high cholesterol, hypothyroid - Social History Smoking Status: Former smoker Constitutional: Initial Vital Signs Temperature (C) 37.0 C 04/23/18 00:21 Heart Rate 98 04/23/18 00:21 Respiratory Rate 16 04/23/18 00:21 Blood Pressure 186/90 H 04/23/18 00:21 O2 Sat (%) 96 04/23/18 00:21 O2 Delivery Mode Nasal Cannula O2 (L/minute) 2 Allergies/Adverse Reactions: enalapril maleate [From Vasotec] Allergy (Intermediate, Verified 04/23/18 00:22) enalaprilat dihydrate [From Vasotec] Allergy (Verified 04/23/18 00:22) Sulfa (Sulfonamide Antibiotics) Allergy (Verified 04/23/18 00:22) enalapril maleate Allergy (Unknown, Uncoded 04/20/18 10:28) enalaprilat dihydrate Allergy (Unknown, Uncoded 05/30/17 10:28) Home Medications: Medication Instructions Recorded Furosemide [Lasix 20 MG (*)] 20 mg PO DAILY 03/29/12 Levothyroxine [Synthroid 75 mcg 75 mcg PO MOTUWETHFRSA@06 03/29/12 (*)] Simvastatin [Zocor 40 mg] 40 mg PO HS 03/29/12 Spironolactone [Aldactone 25 MG 25 mg PO DAILY 03/29/12 (*)] metFORMIN HCL [Glucophage 500 mg 1,000 mg PO BIDMEAL 03/29/12 (*)] Calcium Carbonate [Tums 500MG (*)] 500 - 1,000 mg PO Q4 PRN 01/14/16 Insulin Glargine [Lantus 100 15 - 45 units SC DAILY 01/14/16 UNITS/ML] Cholecalciferol Vit D3 [Vitamin D3 1,000 units PO DAILY tab 05/15/17 (*)] Aspirin EC [Aspirin EC 81 mg (*)] 81 mg PO DAILY 07/16/17 Ranitidine HCl [Zantac] 150 mg PO BID 07/16/17 Acetaminophen [Tylenol ES 500 mg 1,000 mg PO TID PRN 04/23/18 (*)] Sertraline HCl [Zoloft 100mg (*)] 100 mg PO DAILY 04/23/18 Medical Decision Making - Data Points Laboratory Results: Laboratory Results 04/23/18 00:33 04/23/18 00:33 Medications Given: Acetaminophen (Tylenol) 650 mg PO Q4HRS PRN PRN Reason: Pain, Mild/Fever, Can Take PO Stop: 10/20/18 02:33 Last Admin: 04/23/18 07:41 Dose: 650 mg Aspirin Buffered (Aspirin Ec) 81 mg PO DAILY [facility] Stop: 10/20/18 09:59 Last Admin: 04/23/18 11:44 Dose: 81 mg Enoxaparin Sodium (Lovenox) 40 mg SC DAILY [facility] Stop: 10/20/18 08:59 Last Admin: 04/23/18 09:15 Dose: 40 mg Famotidine (Pepcid) 20 mg PO BID [facility] Stop: 10/20/18 20:59 Last Admin: 04/23/18 19:56 Dose: 20 mg Hydromorphone HCl (Dilaudid) 0.2 mg IVP Q4HRS PRN PRN Reason: Breakthrough pain Stop: 05/03/18 02:33 Last Admin: 04/23/18 04:20 Dose: 0.2 mg Sodium Chloride (Ns) 1,000 mls @ 150 mls/hr IV CONT [facility] Stop: 10/20/18 02:44 Last Admin: 04/23/18 19:54 Dose: 1,000 mls Insulin Glargine (Lantus Syringe) 25 units SC DAILY@2000 [facility] Stop: 10/20/18 19:59 Last Admin: 04/23/18 21:00 Dose: 25 units Insulin Human Lispro (Humalog Lispro) 0 unit SC TIDMEAL [facility] PRN Reason: Protocol Stop: 10/20/18 07:59 Last Admin: 04/23/18 17:53 Dose: 2 units Ondansetron HCl (Zofran) 4 mg IVP Q4HRS PRN PRN Reason: Nausea/Vomiting, Can't Take PO Stop: 10/20/18 02:33 Last Admin: 04/23/18 11:44 Dose: 4 mg Ondansetron HCl (Zofran Odt) 4 mg PO Q4HRS PRN PRN Reason: Nausea/Vomiting, Use 1st Stop: 10/20/18 02:33 Last Admin: 04/23/18 04:10 Dose: 4 mg Oxycodone HCl (Oxycodone Ir) 5 mg PO Q4HRS PRN PRN Reason: Pain, Severe Able to Take PO Stop: 05/03/18 02:33 Last Admin: 04/23/18 06:25 Dose: 5 mg Promethazine HCl (Phenergan) 6.25 - 12.5 mg IVP Q6HRS PRN PRN Reason: Nausea/Vomiting, Use 2nd Stop: 10/20/18 02:33 Last Admin: 04/23/18 07:31 Dose: 12.5 mg Sertraline HCl (Zoloft) 100 mg PO DAILY [facility] Stop: 10/20/18 09:59 Last Admin: 04/23/18 11:44 Dose: 100 mg Tamsulosin HCl (Flomax) 0.4 mg PO DAILY [facility] Stop: 10/20/18 08:59 Last Admin: 04/23/18 09:15 Dose: 0.4 mg Discontinued Medications Hydromorphone HCl (Dilaudid) 0.5 mg IVP EDNOW ONE Stop: 04/23/18 01:48 Last Admin: 04/23/18 01:50 Dose: 0.5 mg Sodium Chloride (Ns) 1,000 mls @ 0 mls/hr IV EDNOW ONE; Wide Open PRN Reason: Protocol Stop: 04/23/18 00:29 Last Admin: 04/23/18 00:31 Dose: 1,000 mls Sodium Chloride (Ns) 1,000 mls @ 0 mls/hr IV ONCE ONE PRN Reason: Wide Open Stop: 04/23/18 01:10 Last Admin: 04/23/18 01:26 Dose: 1,000 mls Ceftriaxone Sodium/Dextrose (Rocephin 1 Gm (Premix)) 50 mls @ 100 mls/hr IV EDNOW ONE PRN Reason: Protocol Stop: 04/23/18 03:47 Last Admin: 04/23/18 04:11 Dose: 50 mls Insulin Glargine (Lantus Syringe) 15 - 45 units SC DAILY [facility] Stop: 10/20/18 09:59 Last Admin: 04/23/18 13:29 Dose: Not Given Point of Care Test Results: Chemistry 04/23/18 00:36 POC Troponin I 0.01 ng/mL ng/mL (0.00-0.08) Departure - Departure Disposition: [facility] Inpatient Acute Clinical Impression: Urinary tract obstruction by kidney stone Abdominal pain Qualifiers: Abdominal location: left lower quadrant Qualified Code(s): R10.32 - Left lower quadrant pain Condition: Fair
[2018-04-23 00:59] LABS: PLATELET COUNT 220 10^3/uL (150-400)
[2018-04-23] MEDS ORDERED: IOPAMIDOL (ISOVUE-300) 100 ML BTL ONE (01:00)
[2018-04-23 01:02] LABS: INR 1.03 (0.83-1.16); PROTIME(PATIENT) 13.1 SEC (12.0-15.0)
[2018-04-23] MEDS ORDERED: HYDROmorphONE/DILAUDID 2 MG/ML INJ IVP ONE (01:47)
[2018-04-23] MEDS ORDERED: PROMETHAZINE HCL 25 MG/ML INJ IVP PRN (02:34)
[2018-04-23] MEDS ORDERED: ONDANSETRON DISINTEGRATING 4 MG TAB PO PRN (02:34)
[2018-04-23] MEDS ORDERED: oxyCODONE IR 5 MG TAB PO PRN (02:34)
[2018-04-23] MEDS ORDERED: HYDROmorphONE/DILAUDID 1 MG/ML INJ IVP PRN (02:34)
[2018-04-23] MEDS ORDERED: D50W 25 GM/50 ML VIAL IVP PRN (02:37)
--- NOTE | 2018-04-23 02:59 | PDGENHP ---
History and Physical - Chief Complaint L flank pain - History of Present Illness 77 yo F w/ hx of DM, CAD, and DVT presents with L flank pain. She tells me this started this evening. She also noted nausea and mild dysuria. She is unsure if she had a fever. ED evaluation notable for obstructive uropathy on CT. The patient's symptoms are improved after 2 L IVF and pain medications in the ED. We still have not been able to obtain a UA for evaluation of UTI. She was a WBC of 14k but is afebrile and hemodynamically stable. Elevated lactate resolved with fluids. Case discussed with ED physician Dr. Koenig; records reviewed and summarized above. History Information - Allergies/Home Medication List Allergies/Adverse Reactions: enalapril maleate [From Vasotec] Allergy (Intermediate, Verified 04/23/18 00:22) enalaprilat dihydrate [From Vasotec] Allergy (Verified 04/23/18 00:22) Sulfa (Sulfonamide Antibiotics) Allergy (Verified 04/23/18 00:22) enalapril maleate Allergy (Unknown, Uncoded 05/30/17 10:28) enalaprilat dihydrate Allergy (Unknown, Uncoded 05/30/17 10:28) Home Medications: Furosemide [Lasix 20 MG (*)] 20 mg PO DAILY PRN 03/29/12 [Last Taken 07/13/17] Levothyroxine [Synthroid 75 mcg (*)] 75 mcg PO MOTUWETHFRSA@06 03/29/12 [Last Taken 07/16/17] Simvastatin [Zocor 40 mg] 40 mg PO HS 03/29/12 [Last Taken 1 Month Ago ~06/15/17 ] Spironolactone [Aldactone 25 MG (*)] 25 mg PO DAILY PRN 03/29/12 [Last Taken 04/27] metFORMIN HCL [Glucophage 500 mg (*)] 500 mg PO BIDMEAL 03/29/12 [Last Taken 07/28 09:00] Calcium Carbonate [Tums 500MG (*)] 500 - 1,000 mg PO Q4 PRN 01/14/16 [Last Taken 07/15/17] Insulin Glargine [Lantus 100 UNITS/ML] 0 units SC DAILY 01/14/16 [Last Taken 07/28] Aspirin EC [Aspirin EC 81 mg (*)] 81 mg PO DAILY 07/16/17 [Last Taken 07/16/17] Polyethylene Glycol 3350 [Miralax 17 gm (*)] 17 gm PO BID PRN 07/16/17 [Last Taken 1 Month Ago ~06/15/17] Ranitidine HCl [Zantac] 150 mg PO BID 07/16/17 [Last Taken 07/16/17 09:00] I have personally reviewed and updated: family history, medical history - Past Medical History coronary artery disease, diabetes type 2 - Surgical History Reports: hysterectomy - Family History Positive for: diabetes type II - Social History Smoking Status: Former smoker Review of Systems Review of Systems: ROS: 10pt was reviewed & negative except for what was stated in HPI & below Physical Exam Physical Exam: Temp Pulse Resp BP Pulse Ox 37.0 C 99 20 95/78 L 96 04/23/18 00:21 04/23/18 02:46 04/23/18 02:46 04/23/18 02:46 04/23/18 02:46 O2 (L/minute) 2 Constitutional: obese, uncomfortable Eyes: PERRL, EOMI Ears, Nose, Mouth, Throat: moist mucous membranes, no oral mucosal ulcers Cardiovascular: regular rate and rhythym, no murmur, rub, or gallop Respiratory: no respiratory distress, clear to auscultation Gastrointestinal: normoactive bowel sounds, tenderness (L flank), distension, No guarding, No rebound Skin: warm, normal color Musculoskeletal: full muscle strength, no muscle tenderness Neurologic: AAOx3, CN II-XII Intact Psychiatric: interacting appropriately, not anxious Lab Data & Imaging Review 04/23/18 00:33 04/23/18 00:33 WBC 14.78 10^3/uL (3.80-9.50) H 04/23/18 00:33 RBC 4.48 10^6/uL (4.18-5.33) 04/23/18 00:33 Hgb 13.6 g/dL (12.6-16.3) 04/23/18 00:33 Hct 41.2 % (38.0-47.0) 04/23/18 00:33 MCV 92.0 fL (81.5-99.8) 04/23/18 00:33 MCH 30.4 pg (27.9-34.1) 04/23/18 00:33 MCHC 33.0 g/dL (32.4-36.7) 04/23/18 00:33 RDW 12.6 % (11.5-15.2) 04/23/18 00:33 Plt Count 220 10^3/uL (150-400) 04/23/18 00:33 MPV 11.6 fL (8.7-11.7) 04/23/18 00:33 Neut % (Auto) 83.5 % (39.3-74.2) H 04/23/18 00:33 Lymph % (Auto) 9.1 % (15.0-45.0) L 04/23/18 00:33 Gregg % (Auto) 5.1 % (4.5-13.0) 04/23/18 00:33 Eos % (Auto) 0.9 % (0.6-7.6) 04/23/18 00:33 Baso % (Auto) 0.7 % (0.3-1.7) 04/23/18 00:33 Nucleat RBC Rel Count 0.0 % (0.0-0.2) 04/23/18 00:33 Absolute Neuts (auto) 12.34 10^3/uL (1.70-6.50) H 04/23/18 00:33 Absolute Lymphs (auto) 1.34 10^3/uL (1.00-3.00) 04/23/18 00:33 Absolute Monos (auto) 0.76 10^3/uL (0.30-0.80) 04/23/18 00:33 Absolute Eos (auto) 0.13 10^3/uL (0.03-0.40) 04/23/18 00:33 Absolute Basos (auto) 0.10 10^3/uL (0.02-0.10) 04/23/18 00:33 Absolute Nucleated RBC 0.00 10^3/uL (0-0.01) 04/23/18 00:33 Immature Gran % 0.7 % (0.0-1.1) 04/23/18 00:33 Immature Gran # 0.11 10^3/uL (0.00-0.10) H 04/23/18 00:33 PT 13.1 SEC (12.0-15.0) 04/23/18 00:33 INR 1.03 (0.83-1.16) 04/23/18 00:33 APTT 30.2 SEC (23.0-38.0) 04/23/18 00:33 VBG Lactic Acid 1.8 mmol/L (0.7-2.1) 04/23/18 02:10 Sodium 141 mEq/L (135-145) 04/23/18 00:33 Potassium 4.4 mEq/L (3.5-5.2) 04/23/18 00:33 Chloride 107 mEq/L (97-110) 04/23/18 00:33 Carbon Dioxide 19 mEq/l (22-31) L 04/23/18 00:33 Anion Gap 15 mEq/L (6-14) H 04/23/18 00:33 BUN 26 mg/dL (7-23) H 04/23/18 00:33 Creatinine 1.3 mg/dL (0.6-1.0) H 04/23/18 00:33 Estimated GFR 40 04/23/18 00:33 Glucose 217 mg/dL (70-100) H 04/23/18 00:33 Calcium 9.3 mg/dL (8.5-10.4) 04/23/18 00:33 Total Bilirubin 0.5 mg/dL (0.1-1.4) 04/23/18 00:33 Conjugated Bilirubin 0.5 mg/dL (0.0-0.5) 04/23/18 00:33 Unconjugated Bilirubin 0.0 mg/dL (0.0-1.1) 04/23/18 00:33 AST 18 IU/L (14-46) 04/23/18 00:33 ALT 24 IU/L (9-52) 04/23/18 00:33 Alkaline Phosphatase 74 IU/L (38-126) 04/23/18 00:33 POC Troponin I 0.01 ng/mL (0.00-0.08) 04/23/18 00:36 Total Protein 7.2 g/dL (6.3-8.2) 04/23/18 00:33 Albumin 4.4 g/dL (3.5-5.0) 03/14/19 00:33 Lipase 129 IU/L (23-300) 04/23/18 00:33 Assessment & Plan Assessment: 77 yo F w/ CAD, DM, and hx of DVT presents w/ obstructive uropathy. Plan: 1. Urolithiasis - 2.5 mm calculus at the L UVJ w/ upstream hydroureter and hydronephrosis. - Admit for observation - Aggressive IVF - Tamsulosin daily - Pain control 2. Leukocytosis - Possible reactive to above; still awaiting UA to eval for UTI. - Await UA results, treat if abnormal noting mild dysuria - Acute management as above 3. DM - Will manage with SSI initially; continue home medications pending reconciliation. 4. CAD - Denies chest pain; continue home medications pending reconciliation. 5. Uterine mass - This has been noted during previous visits. The patient tells me she has yet to address this with her outpatient provider. - Continue to recommend outpatient follow-up for this Diet - Regular Code - Full Ppx - LMWH Dispo - Admit under observation status
[2018-04-23] MEDS: ONDANSETRON 4 MG/2 ML VIAL IVP PRN ×2 (04:50→11:44)
[2018-04-23] MEDS: NS 1,000 ML IV SCH ×3 (06:27→19:54)
[2018-04-23 06:34] LABS: PLATELET COUNT 206 10^3/uL (150-400)
[2018-04-23] MEDS: ACETAMINOPHEN 325 MG TAB PO PRN (07:41)
[2018-04-23] MEDS: TAMSULOSIN HCL 0.4 MG CAP PO SCH (09:15)
[2018-04-23] MEDS: ENOXAPARIN 40 MG/0.4 ML SYR SC SCH (09:15)
[2018-04-23] MEDS ORDERED: INSULIN GLARGINE 100 UNITS/ML UNIT SC SCH (10:00)
[2018-04-23] MEDS: INSULIN LISPRO 100 UNIT/ML SC SCH ×3 (10:40→17:53)
[2018-04-23] MEDS: ASPIRIN EC 81 MG TAB PO SCH (11:44)
[2018-04-23] MEDS: SERTRALINE HCL 100 MG TAB PO SCH (11:44)
[2018-04-23] MEDS ORDERED: metFORMIN HCL 500 MG TAB PO SCH (18:00)
--- NOTE | 2018-04-23 19:13 | HOSPPROG ---
Hospitalist Progress Note Assessment/Plan: * 2.5 mm kidney stone -continue supportive care with hopes of passage -continue Flomax * Toxic/metabolic encephalopathy -very altered today -pain/nausea med required have sacrificed her mental status * UTI -IV ceftriaxone pending culture * DM -home lantus * Uterine mass -has failed to follow up with this as outpatient * Hyperkalemia -hold spironolactone Subjective: Lots of pain this am, required lots of meds. Now no pain very altered mental status, somnolent and difficult to arouse Objective: Vital Signs Temp Pulse Resp BP Pulse Ox 36.7 C 104 H 14 102/49 L 95 04/23/18 15:53 04/23/18 16:08 04/23/18 15:53 04/23/18 15:53 04/23/18 16:08 Laboratory Results 04/23/18 06:21 04/23/18 06:21 04/22/18 04/23/18 04/24/18 05:59 05:59 05:59 Intake Total 2300 Output Total 200 675 Balance 2100 -675 PT 13.1 SEC (12.0-15.0) 04/23/18 00:33 INR 1.03 (0.83-1.16) 04/23/18 00:33 CT abd - 2.5mm stone - Physical Exam Constitutional: no apparent distress, appears nourished, not in pain Cardiovascular: regular rate and rhythym, no murmur, rub, or gallop Respiratory: no respiratory distress, no rales or rhonchi, clear to auscultation Gastrointestinal: normoactive bowel sounds, soft, non-tender abdomen, no palpable masses Skin: no rashes or abrasions, no fluctuance, no induration Neurologic: No AAOx3 Psychiatric: encephalopathic, poor insight, poor judgement, poor memory, other ( somnolent), No interacting appropriately ICD10 Worksheet Patient Problems: Problems Problem Status Onset Fracture of proximal end of femur Active Vertigo Acute Vomiting Acute UTI (urinary tract infection) Acute Fracture of distal femur Acute T12 compression fracture Acute Right leg DVT Acute Abdominal pain Acute Urinary tract obstruction by kidney stone Acute
[2018-04-23] MEDS: FAMOTIDINE 20 MG TAB PO SCH (19:56)
[2018-04-23] MEDS: INSULIN GLARGINE 100 UNITS/ML UNIT SC SCH (21:00)
[2018-04-24 05:18] LABS: PLATELET COUNT 165 10^3/uL (150-400)
[2018-04-24] MEDS: LEVOTHYROXINE 75 MCG TAB PO SCH (05:22)
[2018-04-24] MEDS: INSULIN LISPRO 100 UNIT/ML SC SCH ×3 (08:39→17:44)
[2018-04-24] MEDS: ENOXAPARIN 40 MG/0.4 ML SYR SC SCH (08:39)
[2018-04-24] MEDS: TAMSULOSIN HCL 0.4 MG CAP PO SCH (08:40)
[2018-04-24] MEDS: ATORVASTATIN CALCIUM 20 MG TAB PO SCH (08:40)
[2018-04-24] MEDS: SERTRALINE HCL 100 MG TAB PO SCH (08:40)
[2018-04-24] MEDS: FAMOTIDINE 20 MG TAB PO SCH (08:40)
[2018-04-24] MEDS: ASPIRIN EC 81 MG TAB PO SCH (08:40)
[2018-04-24] MEDS: SPIRONOLACTONE 25 MG TAB PO SCH (08:40)
--- NOTE | 2018-04-24 13:56 | PDMN ---
Medical Necessity Medical necessity: Change to IP, as of 04/23/18, per MD & MCG M-320; los >2 mn for ongoing management of kidney stone w/toxic/metabolic encephalopathy & UTI; requiring further monitoring, supportive care, IV abx & pain management
--- NOTE | 2018-04-24 17:11 | ASMTCMCOM ---
CM Note CM Note Notes: Pt is a 77 y/o female admitted for left flank pain. Therapies are recommending HC. CM met w/ pt for dispo planning. Pt reports that she was current w/ [facility] and had a good experience w/ them. Referral sent. CM confirmed pts address, phone number and PCP info. Pts PCP is Dr. Pierre out of [facility]. CM to follow. Plan: [facility]; PT, OT Date Signed: 04/24/2018 05:09 PM Electronically Signed By:LALO Jacobson
--- NOTE | 2018-04-24 18:25 | HOSPPROG ---
Hospitalist Progress Note Assessment/Plan: * 2.5 mm kidney stone -no recurrence of pain - suspect it has passed -continue Flomax * Toxic/metabolic encephalopathy -improved * Hypoxia/tachycardia -83%RA with HR 133 -check CTA rule out PE * UTI -IV ceftriaxone pending culture * DM -home lantus * Uterine mass -has failed to follow up with this as outpatient * Hyperkalemia -hold spironolactone Subjective: mental status returned to normal, however she got very hypoxic and tachycardic today Objective: Vital Signs Temp Pulse Resp BP Pulse Ox 36.6 C 102 H 20 104/62 96 04/24/18 15:29 04/24/18 15:29 04/24/18 15:29 04/24/18 15:29 04/24/18 15:29 Laboratory Results 04/24/18 04:44 04/24/18 04:44 04/23/18 04/24/18 04/25/18 05:59 05:59 05:59 Intake Total 200 Output Total 800 Balance -600 PT 13.1 SEC (12.0-15.0) 04/23/18 00:33 INR 1.03 (0.83-1.16) 04/23/18 00:33 CXR viewed, my personal interpretation is - mostly negative, maybe a little fullness - Physical Exam Constitutional: no apparent distress, appears nourished, not in pain Cardiovascular: regular rate and rhythym, no murmur, rub, or gallop Respiratory: no respiratory distress, no rales or rhonchi, clear to auscultation Gastrointestinal: normoactive bowel sounds, soft, non-tender abdomen, no palpable masses Skin: no rashes or abrasions, no fluctuance, no induration Neurologic: AAOx3, sensation intact bilaterally Psychiatric: interacting appropriately, not anxious, not encephalopathic, thought process linear ICD10 Worksheet Patient Problems: Problems Problem Status Onset Fracture of proximal end of femur Active Vertigo Acute Vomiting Acute UTI (urinary tract infection) Acute Fracture of distal femur Acute T12 compression fracture Acute Right leg DVT Acute Abdominal pain Acute Urinary tract obstruction by kidney stone Acute
[2018-04-24] MEDS ORDERED: IOPAMIDOL (ISOVUE 370) 100 ML BTL IV ONE ×2 (22:01→22:09)
[2018-04-24] MEDS: INSULIN GLARGINE 100 UNITS/ML UNIT SC SCH (22:02)
[2018-04-25 05:42] LABS: PLATELET COUNT 176 10^3/uL (150-400)
[2018-04-25] MEDS: LEVOTHYROXINE 75 MCG TAB PO SCH (06:13)
[2018-04-25] MEDS: ACETAMINOPHEN 325 MG TAB PO PRN (06:16)
[2018-04-25] MEDS ORDERED: FUROSEMIDE 40 MG/4 ML VIAL IVP ONE (08:54)
[2018-04-25] MEDS ORDERED: FAMOTIDINE 20 MG TAB PO SCH (09:00)
[2018-04-25] MEDS: INSULIN LISPRO 100 UNIT/ML SC SCH ×2 (09:09→12:29)
[2018-04-25] MEDS: TAMSULOSIN HCL 0.4 MG CAP PO SCH (09:09)
[2018-04-25] MEDS: ASPIRIN EC 81 MG TAB PO SCH (09:10)
[2018-04-25] MEDS: SERTRALINE HCL 100 MG TAB PO SCH (09:10)
[2018-04-25] MEDS: ATORVASTATIN CALCIUM 20 MG TAB PO SCH (09:10)
[2018-04-25] MEDS: SPIRONOLACTONE 25 MG TAB PO SCH (09:10)
[2018-04-25] MEDS: ENOXAPARIN 40 MG/0.4 ML SYR SC SCH (09:11)
--- NOTE | 2018-04-25 11:26 | PDIAF ---
- Diagnosis Diagnosis: kidney stone, CHF Code Status: Full Code - Medication Management Discharge Medications: electronically signed and located in the Home Medication List. - Orders Services needed: Home Care, Registered Nurse, Physical Therapy, Occupational Therapy Home Care Face to Face: I certify that this patient was under my care and that I had the required ivrg-up-dall encounter meeting the encounter requirements on the discharge day. My findings support the fact that the patient is homebound as defined in Home Care Face to Face Continued: CMS Chapter 7 Medicare Benefits Manual 30.1.1 , The condition of the patient is such that there exists a normal inability to leave home and consequently, leaving home would require a considerable and taxing effort. Diet Recommendation: no restrictions on diet Weigh Patient: daily Additional Instructions: Outpatient ECHO to evaluate CHF (Congestive Heart Failure) Follow-up uterine mass as outpatient - Follow Up Care Current Providers and Referrals: Patient,NotPresent [Unknown] - As per Instructions
--- NOTE | 2018-04-25 11:53 | ASMTLACE ---
LACE Length of stay for Answers: 2 days current admission Acuity / Level of Answers: Yes Care: Did the patient have an inpatient admission? Comorbidities - select Answers: Coronary Artery Disease all that apply Diabetes (uncontrolled or controlled) Opioid dependence / Chronic pain Other Notes: Thyroid disease; HTN; HLD; DVT # of Emergency department Answers: 1-2 visits in the last 6 months Social determinants Answers: Lack of community resources and/or lack of social support (no pcp, lives alone, transportation, ana d) Score: 18 Date Signed: 04/25/2018 11:52 AM Electronically Signed By:Ling Reyes RN
--- NOTE | 2018-04-25 12:51 | ASMTDCNOTE ---
Case Management Discharge Discharge Order Complete? Answers: Yes Patient to Obtain Answers: Independently Medications Transportation Arranged Answers: Family/Friends Transport will Pick (Date 04/25/2018 03:00 PM & Time) Faxed Final Orders Answers: Yes Agency/Facility Transfer Answers: Yes Report Printed & Faxed to Receiving Agency Discharge Comments Notes: D/w MD, final orders faxed. [facility] notified. CM able to speak with pt's dtr Pati, she will pick pt up. Date Signed: 04/25/2018 12:50 PM Electronically Signed By:Ling Reyes RN
[2018-04-25 13:16] VITALS: BP 125/62
--- NOTE | 2018-04-25 17:29 | ASDISCHSUM ---
Discharge Information Plan Status:Home with Home Health Medically Cleared to Leave: Discharge Date:04/25/2018 03:57 PM CM D/C Disposition:Home Health Service ADT D/C Disposition:Home Health Service Projected Discharge Date:04/25/2018 11:00 AM Transportation at D/C:Family Discharge Delay Reason: Follow-Up Date:04/25/2018 11:00 AM Discharge Slot: Final Diagnosis: Placement Information Referral Type:*Home Health Care Services Referral ID:[id number] Provider Name:[facility] (formerly [facility]) Address 1:[address] [facility] [address] Address 2: City:[place] Selection Factors: State:[place] Patient Contact Information Contact Name:JELLY Relationship:Son Address: Work Phone: [facility]:[place] Alternate Phone: [facility] Code:[place] Email: Financial Information Financial Class:Medicare Primary Plan Desc:MEDICARE INPATIENT Primary Plan Number:[id number] Secondary Plan Desc:[employer]/MDR SUPPLEMENT Secondary Plan Number:[id number] Assessment Information LACE LACE Length of stay for Answers: 2 days current admission Acuity / Level of Answers: Yes Care: Did the patient have an inpatient admission? Comorbidities - select Answers: Coronary Artery Disease all that apply Diabetes (uncontrolled or controlled) Opioid dependence / Chronic pain Other Notes: Thyroid disease; HTN; HLD; DVT # of Emergency department Answers: 1-2 visits in the last 6 months Social determinants Answers: Lack of community resources and/or lack of social support (no pcp, lives alone, transportation, ana d) Score: 18 Date Signed: 04/25/2018 11:52 AM Electronically Signed By:Ling Reyes RN [facility] CM Progress Note CM Note CM Note Notes: Pt is a 77 y/o female admitted for left flank pain. Therapies are recommending HC. CM met w/ pt for dispo planning. Pt reports that she was current w/ [facility] and had a good experience w/ them. Referral sent. CM confirmed pts address, phone number and PCP info. Pts PCP is Dr. Pierre out of [facility]. CM to follow. Plan: [facility]; PT, OT Date Signed: 04/24/2018 05:09 PM Electronically Signed By:LALO Jacobson Case Management Discharge Plan Note Case Management Discharge Discharge Order Complete? Answers: Yes Patient to Obtain Answers: Independently Medications Transportation Arranged Answers: Family/Friends Transport will Pick (Date 04/25/2018 03:00 PM & Time) Faxed Final Orders Answers: Yes Agency/Facility Transfer Answers: Yes Report Printed & Faxed to Receiving Agency Discharge Comments Notes: D/w MD, final orders faxed. [facility] notified. CM able to speak with pt's dtr Pati, she will pick pt up. Date Signed: 04/25/2018 12:50 PM Electronically Signed By:Ling Reyes RN Intervention Information Intervention Type:*MIRACLE-Signed Date of Service:04/23/2018 02:22 PM Patient Type:Observation Staff Member:Tosha Moraes Hours: Discipline: Severity: Comment:
--- NOTE | 2018-04-25 18:03 | GDS ---
[f rep st] DISCHARGE SUMMARY DISCHARGE DIAGNOSES: 1. 2.5 mm kidney stone which had spontaneously passed. 2. Toxic metabolic encephalopathy. 3. Acute on chronic diastolic congestive heart failure. 4. Escherichia coli urinary tract infection. 5. Diabetes type 2. 6. Uterine mass. HISTORY: The patient is a 77-year-old female who presented with flank pain and was diagnosed with a 2.5 mm kidney stone. The pain was uncontrolled, and she was admitted to observation in an attempt to pass the stone. She required a large amount of medications for pain control, which subsequently thr ew her into a toxic metabolic encephalopathy, and she required 24 hours to clear these medications an d return to a normal mental status. She also received a large amount of IV fluids to try to flush th e kidney stone out, and this through her into congestive heart failure with pulmonary edema and hypox emia, 83% on room air. CT angiogram of the chest was negative for PE. Her D-dimer was elevated, and she was given a dose of Lasix. She is now back to room air on discharge. There is no recent echoca rdiogram in our system. She wished to pursue an echo as an outpatient rather than staying in the [facility]. I think she may have a known diagnosis of diastolic failure given the fact she takes Lasix an d spironolactone at home. We just do not have a record of it, as she gets much of her health care in [place]. Urine culture grew E coli. She was treated with IV ceftriaxone throughout her hospitalization. She will discharge on ciprofloxacin. She has a known uterine mass. It has been recommended to her in the past to follow this up as an out patient and she has failed to do so. It was recommended again. DISCHARGE MEDICATIONS: Please see computerized record for full detailed list. NEW MEDICATIONS: Ciprofloxacin 250 mg p.o. twice daily x3 more days. ADDITIONAL DISCHARGE INSTRUCTIONS: 1. Outpatient echocardiogram to evaluate congestive heart failure. 2. Follow up uterine mass. Greater than 30 minutes' time was spent arranging this discharge. Patient seen and examined by me on the day of discharge. /[id number]/MODL
--- NOTE | 2018-04-26 23:25 | CPEKG ---
Test Reason : OPEN Blood Pressure : / mmHG Vent. Rate : 070 BPM Atrial Rate : 070 BPM P-R Int : 191 ms QRS Dur : 072 ms QT Int : 439 ms P-R-T Axes : 079 040 041 degrees QTc Int : 474 ms Sinus rhythm Low voltage, precordial leads Confirmed by Eben De La Vega ([id number]) on 04/26/2018 11:24:55 PM Referred By: Jae Buck Confirmed By:Eben De La Vega
== END 2018-04-25 15:57 | disposition home health service (06) | DRG 689 ==
LOC: EDUNIT# → F2W 03:25 → F3E 10:15 → OBSVTOIN 15:41
PROVIDERS: ADMIT Student in an Organized Health Care Education/Training Program; ATTEND Student in an Organized Health Care Education/Training Program
DX: N13.6 Pyonephrosis (principal); G92 Toxic encephalopathy; I11.0 Hypertensive heart disease with heart failure; I50.33 Acute on chronic diastolic (congestive) heart failure; B96.20 Unspecified Escherichia coli [E. coli] as the cause of diseases classified elsewhere; D39.0 Neoplasm of uncertain behavior of uterus; E86.9 Volume depletion, unspecified; E11.9 Type 2 diabetes mellitus without complications; T40.2X5A Adverse effect of other opioids, initial encounter; R09.02 Hypoxemia; E78.5 Hyperlipidemia, unspecified; I25.10 Atherosclerotic heart disease of native coronary artery without angina pectoris; Z95.5 Presence of coronary angioplasty implant and graft
CPT/HCPCS: 84484-ER; 96374; 97116-GP; 97161-GP; 97166-GO; 97530-GP; 97535-GO; J0696; J1170; J1650; J1815; J1940; J2405; J2550; Q9967